=== PATIENT | male | born 1955 | race Caucasian/White ===

== ENCOUNTER 2017-04-14 14:09 | Day surgery (SDC) | payer OTHER ==
[2017-04-11 17:50] VITALS: BMI 20.3
--- NOTE | 2017-04-14 15:03 | HP ---
History & Physical Update - History History: No Change - Physical Physical: No Change - Assessment Assessment: No Change - Plan Plan: No Change
[2017-04-14] MEDS ORDERED: ACETAMINOPHEN 1000 MG/100 ML VIAL (NON FORMULARY) IVPB ONE (15:04)
[2017-04-14] MEDS ORDERED: IBUPROFEN 800 MG/8 ML IJ IVPB PRN (15:04)
[2017-04-14] MEDS ORDERED: oxyCODONE HCL 5 MG TABLET PO PRN ×2 (15:12→16:20)
[2017-04-14] MEDS ORDERED: ONDANSETRON 4 MG/2 ML VIAL IVPUSH PRN ×2 (15:12→16:20)
[2017-04-14] MEDS ORDERED: DEXTROSE 5%-0.45% SALINE 1,000 ML IV SCH (15:15)
[2017-04-14] MEDS ORDERED: LIDOCAINE HCL 1%, 10 MG/ML (20ML VIAL) ONE (15:22)
[2017-04-14] MEDS ORDERED: DESFLURANE GAS 240 ML BOTTLE IH ONE (15:25)
[2017-04-14] MEDS ORDERED: LIDOCAINE HCL/PF 2% SDV 5ML VIAL ONE (15:29)
[2017-04-14] MEDS ORDERED: PROPOFOL 20 ML ONE ×2 (15:29→15:43)
[2017-04-14] MEDS ORDERED: ceFAZolin SODIUM 1 GM VIAL IVPB ONE (15:44)
[2017-04-14] MEDS ORDERED: SUCCINYLCHOLINE CHLORIDE 200 MG/10 ML VIAL ONE (15:46)
[2017-04-14] MEDS ORDERED: MIDAZOLAM HCL 2 MG/2 ML SINGLE DOSE VIAL ONE (15:48)
[2017-04-14] MEDS ORDERED: LIDOCAINE HCL 1%, 10 MG/ML (20ML VIAL) PNB ONE (15:49)
[2017-04-14] MEDS ORDERED: BACITRACIN 15 GM TUBE TOPICAL OINTMENT ONE (15:57)
[2017-04-14] MEDS ORDERED: PROMETHAZINE HCL 25 MG/1 ML VIAL IVPUSH PRN (16:20)
[2017-04-14] MEDS ORDERED: LACTATED RINGERS SOLUTION 1,000 ML IV SCH (16:30)
[2017-04-14] MEDS ORDERED: ACETAMINOPHEN INJECTION 100 ML IVPB ONE (16:37)
[2017-04-14 16:49] VITALS: TEMP 98
[2017-04-14] MEDS ORDERED: HYDROmorphone HCL CARPU-JECT 2 MG/1 ML DISP.SYRIN ONE (17:04)
[2017-04-14] MEDS ORDERED: HYDROmorphone HCL CARPU-JECT 2 MG/1 ML DISP.SYRIN IVPUSH PRN (17:05)
[2017-04-14 17:59] VITALS: BP 133/64; PULSE 66
--- NOTE | 2017-04-15 14:46 | OP ---
DATE OF OPERATION: 04/14/2017 PREOPERATIVE DIAGNOSIS: Penile mass. POSTOPERATIVE DIAGNOSIS: Penile mass. PROCEDURE: Excision of penile mass. ANESTHESIA: General with local, Dr. Vasquez ESTIMATED BLOOD LOSS: 10 mL. SPECIMEN: Penile mass. SURGEON: Rodrigo Luis MD PREOPERATIVE INDICATIONS: The patient is a 62-year-old male with a recurrent mass in the distal shaft of his penis. It butts up to the smith of the glans. He comes for excision. Examination of his lymph nodes was negative, and CT scan of the pelvis also is negative for lymphadenopathy. DESCRIPTION OF PROCEDURE: The patient was brought to the OR, placed on the table in supine position. Given general anesthesia and IV antibiotics. The groin was prepped and draped sterilely. Lidocaine block was given. Time-out was performed. Mass was grasped with forceps and was excised en toto. It was sent for histopathologic diagnosis. It appeared to be only in the skin layer. It did not invade in the tunica layer. Hemostasis was maintained, and the skin edges were reopposed to the smith, which meets the glans with 3-0 chromic suture. The wound was then dressed. The patient was woken up. Curry [id number]
--- NOTE | 2017-04-18 15:45 | PATH ---
Surgical Pathology Report Patient Name: GUILLERMO BALBUENA [facility]. Rec. #: [id number] /Age/Gender: 1955 (Age: 62) / M Account: [id number] Location: [facility] SURGICAL Taken: 04/17/2017 Received: 04/17/2017 Reported: 04/18/2017 Physicians: Rodrigo Luis M.D. Specimen(s) Received PENILE MASS Clinical History Malignant neoplasm of penis Final Diagnosis PENILE MASS, EXCISION: MODERATELY DIFFERENTIATED INVASIVE SQUAMOUS CELL CARCINOMA, KERATINIZING TYPE (NON-HPV RELATED SQUAMOUS CELL CARCINOMA), 1.7 CM IN GREATEST DIMENSION. CARCINOMA IS LIMITED TO THE SKIN, AND IS 1.0 CM IN MAXIMUM THICKNESS. MARGINS OF EXCISION ARE FREE OF CARCINOMA AND CARCINOMA IN SITU BY LESS THAN 1 MM. NO LYMPH VASCULAR INVASION OR PERINEURAL INVASION IDENTIFIED. Comment: Also see prior specimen [id number]. Comments Surgical Pathology Cancer Case Summary Protocol posting date: June 2016 PENIS: Incisional Biopsy, Excisional Biopsy, Partial Penectomy, Total Penectomy, Circumcision Procedure _X__ Excisional biopsy Foreskin (presence and type) _X__ Cannot be determined Tumor Site _X__ Skin of the shaft Tumor Size Greatest dimension: 1.7 cm Tumor Focality _X__ Unicentric Histologic Type [id number] squamous cell carcinoma _X__ Squamous cell carcinoma, usual type Histologic Grade _X__ G2: Moderately differentiated Microscopic Tumor Extension _X__ Shaft _X__ Invasive tumor involves skin Tumor Thickness or Depth of Invasion Specify (Millimeter): 10 mm Margins _X__ Uninvolved Lymphovascular Invasion _X__ Not identified Perineural Invasion _X__ Not identified Regional Lymph Nodes _X__ No lymph nodes submitted or found Pathologic Stage Classification (pTNM, AJCC 7th Edition) TNM Descriptors (required only if applicable) (select all that apply) _X__ r (recurrent) Primary Tumor (pT) _X__ pT1a: Tumor invades subepithelial connective tissue without lymph vascular invasion and is not poorly differentiated (ie, grade 3-4) Regional Lymph Nodes (pN) _X__ pNX: Regional lymph nodes cannot be assessed Electronically Signed Dez Carter M.D. Gross Description Received in formalin labeled "penile mass," is a 2.2 x 1.8 cm brown, irregular, unoriented portion of skin excised to a depth of 0.4 cm. The epidermal surface displays a 1.8 x 1.6 x 0.7 cm joseph, raised, ulcerated nodule focally abutting the radial margin. The base is inked green and the specimen is serially sectioned. The specimen is entirely and sequentially submitted in 9 cassettes. 04/17/2017 [facility]04/17/2017
== END 2017-04-14 18:01 | disposition home or self-care (01) ==
LOC: JASU-SURG 14:09
PROVIDERS: ATTEND Urology
PROC: 0VBS0ZZ Excision of Penis, Open Approach (ICD-10-PCS; principal; 2017-04-14 15:30)
DX: C60.2 Malignant neoplasm of body of penis (principal)
CPT/HCPCS: 88307-TC; 94760

== ENCOUNTER 2018-01-15 09:52 | Inpatient (IN) | payer OTHER ==
--- NOTE | 2018-01-15 10:46 | PDOC ---
Attending Attestation - Resident Resident Name: MookAlo simeon - ED Attending Attestation I have performed the following: I have examined & evaluated the patient, The case was reviewed & discussed with the resident, I agree w/resident's findings & plan, Exceptions are as noted - HPI HPI: 01/15/18 11:35 Agree with residents HPI - Physicial Exam PE: 01/15/18 11:35 Vitals: Triage Vital signs reviewed General Appearance: no acute distress, well nourished well developed, Head: Atraumatic, Chest Wall: Tenderness to palpation over the left lower and posterior ribs. Cardiac: Regular rate and rhythym, no murmurs, no rubs, no gallops, Lungs: Clear to auscultation bilateral, good air movement bilaterally, Abdomen: Soft, non distended, tenderness to palpation in the left upper quadrant and left flank Extremities: Full range of motion to all extremities, no cyanosis, clubbing, or edema Skin: Warm and dry, no rashes or lesions, no rash, no petechiae Psych: normal mood, normal affect - Medical Decision Making 01/15/18 11:36 63 years old status post multiple rib fractures 2 weeks ago presents to the ED with progressively worsening posterior rib and now abdominal discomfort We'll treat with pain medication perform CT chest abdomen pelvis with IV contrast to rule out intrathoracic and intra-abdominal injury Chest/Abd pelvis CT findings as dictated (Metastatic disease). Patient does not live near his primary care doctor unable to reach for follow-up Given failure to thrive decrease appetitie weight loss and increasing pain management issues we will observe overnight for oncology consultation to initiate hematology oncology planned.
--- NOTE | 2018-01-15 10:58 | PDOC ---
History of Present Illness - General Chief Complaint: Pain, Acute Stated Complaint: CRACKED RIBS 2 MONTHS AGO/SEVERE PAIN Time Seen by Provider: 01/15/18 10:36 - History of Present Illness Initial Comments: The patient is a 63M with a history of penile Ca and fall from ladder (approx 3' ) 6 weeks ago who presents with increasing left thorax/flank pain. The patient reports that his pain was initially controlled with Percocet but over the last two weeks his pain has gotten worse. He states that he is now unable to walk as far as previous but is still able to walk 1-2 blocks. The patient endorses associated 2 weeks of N/V. The patient also states that he had an episode of hematuria just prior to being interviewed. The patient reports that this is the first episode of hematuria. He denies dysuria or history of hematuria. Patient endorses 2-3 weeks of decreased appetite and unintentional weight loss Patient states that his only cancer history was penile cancer for which he had surgery for and is under the impression that that was the resolution of his cancer. The patient reports that he follows up with Dr. Perez every four months and everything has been normal since his surgery. The patient has also seen Dr. Smith in the past for Urology. 01/15/18 10:51 Past History - Past Medical History Allergies/Adverse Reactions: Allergies Allergy/AdvReac Type Severity Reaction Status Date / Time No Known Drug Allergies Allergy Verified 01/15/18 10:11 Home Medications: Ambulatory Orders Bupropion HCl [Wellbutrin Xl -] 150 mg PO DAILY 03/30/15 Clonazepam [Klonopin] 2 mg PO BID 03/30/15 Risperidone [Risperdal] 2 mg PO HS 03/30/15 Trazodone HCl 100 mg PO HS 03/30/15 Oxycodone HCl/Acetaminophen [Percocet 5-325 mg Tablet] 1 tab PO Q4H PRN #20 tablet 04/14/15 Bacitracin - [Bacitracin Topical Ointment -] 1 applic TP TID #1 tube 04/14/17 Ibuprofen 600 mg PO TID #30 tablet 04/14/17 Tramadol HCl 50 mg PO QID #20 tablet MDD 4 04/14/17 Anemia: No Asthma: No Cancer: Yes (PENILE) Cardiac Disorders: No CVA: No COPD: No CHF: No Dementia: No Diabetes: No GI Disorders: No Disorders: No HTN: No Hypercholesterolemia: No Liver Disease: No Seizures: No Thyroid Disease: No - Surgical History Abdominal Surgery: No Appendectomy: No Cardiac Surgery: No Cholecystectomy: No Lung Surgery: No Neurologic Surgery: No Orthopedic Surgery: No - Suicide/Smoking/Psychosocial Hx Smoking History: Current every day smoker Have you smoked in the past 12 months: Yes Number of Cigarettes Smoked Daily: 60 Information on smoking cessation initiated: Yes 'Breaking Loose' booklet given: 01/15/18 Hx Alcohol Use: No Drug/Substance Use Hx: No Substance Use Type: None Hx Substance Use Treatment: No Review of Systems - Review of Systems Able to Perform ROS?: Yes Comments:: GENERAL/CONSTITUTIONAL: No fever or chills. No weakness HEAD, EYES, EARS, NOSE AND THROAT: No change in vision. No ear pain or discharge. No sore throat CARDIOVASCULAR: No chest pain or shortness of breath RESPIRATORY: No cough, wheezing, or hemoptysis GASTROINTESTINAL: +N /V; denies D/C, denies blood in stool GENITOURINARY: +Hematuria; No dysuria, frequency MUSCULOSKELETAL: No joint or muscle swelling or pain. No neck or back pain SKIN: No rash NEUROLOGIC: No headache, loss of consciousness, or change in strength/sensation ENDOCRINE: No increased thirst. No abnormal weight change HEMATOLOGIC/LYMPHATIC: No anemia, easy bleeding, or history of blood clots ALLERGIC/IMMUNOLOGIC: No hives or skin allergy 01/15/18 10:56 Is the patient limited Moldovan proficient: No *Physical Exam - Vital Signs Last Vital Signs Temp Pulse Resp BP Pulse Ox 98.7 F 85 22 130/80 98 01/15/18 10:11 01/15/18 10:11 01/15/18 10:11 01/15/18 10:11 01/15/18 10:11 - Physical Exam Comments: GENERAL: Awake, alert, and fully oriented, in no acute distress HEAD: No signs of trauma, normocephalic, atraumatic EYES: PERRL, EOMI, sclera anicteric, conjunctiva clear ENT: Hearing grossly normal, nares patent, oropharynx clear without exudates. Moist mucosa NECK: Normal ROM, supple, no lymphadenopathy, JVD, or masses CHEST: L lower thorax swelling over lateral approximate 10th rib LUNGS: No distress, speaks full sentences, clear to auscultation bilaterally HEART:Regular rate and rhythm, normal S1 and S2, no murmurs appreciated, peripheral pulses normal and equal bilaterally ABDOMEN: Soft, left flank and suprapubic TTP, normoactive bowel sounds. No guarding, no rebound. No masses EXTREMITIES : Normal inspection, Normal range of motion, no edema. No clubbing or cyanosis NEUROLOGICAL: Cranial nerves II through XII grossly intact. Normal speech, normal gait, no focal sensorimotor deficits SKIN: Warm, Dry, normal turgor, no rashes or lesions noted 01/15/18 10:58 ED Treatment Course - LABORATORY CBC & Chemistry Diagram: 01/19/18 06:30 01/19/18 06:30 - RADIOLOGY Radiology Studies Ordered: Category Date Time Status ABDOMEN & PELVIS CT WITH CONTR [CT] Stat CT Scan 01/15/18 10:[address] WITH CONTRAST [CT] Stat CT Scan 01/15/18 10:48 Ordered Medical Decision Making - Medical Decision Making The patient is a 63M with a history of rib fx 6 weeks ago who presents 2 weeks of increasing left sided pain associated with N/V and hematuria x1 01/15/18 10:59 ED Course CMP, CBC CT C/A/P w/ IV contrast Leukocytosis to 16 01/15/18 12:16 CT significant for lesions concerning for metastatic cancer Will contact patient's primary care doctor for further information (Dr. Ruben Perez [phone]) 01/15/18 14:38 Per patient's PCP, the patient does not live in that area. The most recent evaluation of the patient by the PCP was several months ago and at that time there was no evidence/knowledge of malignancy previously Discussed results with the patient 01/15/18 14:55 Plan for admission with oncology consult Plan discussed with the patient who is in agreement and verbalized understanding 01/15/18 15:40 Discussed results with patient's sister who is now at beside with patient who also verbalized understanding All questions answered to the best of my ability Dispo: Admit *DC/Admit/Observation/Transfer Diagnosis at time of Disposition: Pain, Malignancy Failure to thrive Qualifiers: Failure to thrive age range: in adult Qualified Code(s): R62.7 - Adult failure to thrive - Discharge Dispostion Disposition: HOME Condition at time of disposition: Guarded Decision to Admit order: No - Referrals - Patient Instructions - Post Discharge Activity
[2018-01-15] MEDS ORDERED: ACETAMINOPHEN 1000 MG/100 ML VIAL (NON FORMULARY) IVPB ONE ×2 (11:05→17:00)
[2018-01-15 11:10] LABS: HEMATOCRIT 40.5 % (35.4-49); HEMOGLOBIN 13.4 GM/dL (11.7-16.9); MCH 30.1 pg (25.7-33.7); MCHC 33.2 g/dl (32.0-35.9); MEAN CELL VOLUME 90.8 fl (80-96); MEAN PLT VOLUME 7.3 fl (7.5-11.1); PLATELET COUNT 480 K/MM3 (134-434); RBC 4.46 M/mm3 (4.00-5.60); RDW 12.5 % (11.9-15.9); WHITE BLOOD COUNT 16.9 K/mm3 (4.0-10.0)
[2018-01-15] MEDS ORDERED: ACETAMINOPHEN INJECTION 100 ML IVPB ONE ×2 (11:18→17:02)
[2018-01-15 11:38] LABS: ANION GAP 9 MMOL/L (8-16); BLOOD UREA NITROGEN 11 mg/dL (7-18); CALCIUM 9.8 mg/dL (8.5-10.1); CHLORIDE 103 mmol/L (98-107); CO2 29 mmol/L (21-32); GLUCOSE,RANDOM 113 mg/dL (74-106); POTASSIUM 4.9 mmol/L (3.5-5.1); SODIUM 141 mmol/L (136-145)
[2018-01-15 11:41] LABS: ALK PHOS 71 U/L (45-117); BILIRUBIN,TOTAL 0.4 mg/dL (0.2-1.0); CREATININE 0.8 mg/dL (0.55-1.3); SGOT/AST 7 U/L (15-37); SGPT/ALT 17 U/L (13-61); TOT PROT 7.7 g/dl (6.4-8.2)
[2018-01-15 12:32] LABS: URINE APPEARANCE TURBID; URINE BILIRUBIN NEGATIVE (<2.0 mg/dL); URINE COLOR RED; URINE GLUCOSE (UA) 1+ (NEGATIVE); URINE KETONE TRACE (NEGATIVE); URINE LEUK ESTERASE NEGATIVE (NEGATIVE); URINE NITRITE NEGATIVE (NEGATIVE); URINE UROBILINOGEN NEGATIVE mg/dL (0.2-1.0)
[2018-01-15 12:33] LABS: URINE PROTEIN 2+ (NEGATIVE)
[2018-01-15] MEDS ORDERED: morphine CARPU-JECT 4 MG/1 ML DISP.SYRIN IVPUSH ONE (15:02)
[2018-01-15] MEDS ORDERED: morphine SULFATE 4 MG/ML VIAL ONE (15:12)
--- NOTE | 2018-01-15 17:14 | HP ---
Admitting History and Physical - Primary Care Physician PCP: Carlos Hernandez - Admission History of Present Illness: - 63M with a history of penile Ca and fall from ladder (approx 3') 6 weeks ago who presents with increasing left thorax/flank pain. The patient reports that his pain was initially controlled with Percocet but over the last two weeks his pain has gotten worse. He states that he is now unable to walk as far as previous but is still able to walk 1-2 blocks. The patient endorses associated 2 weeks of N/V. The patient also states that he had an episode of hematuria just prior to being interviewed. The patient reports that this is the first episode of hematuria. He denies dysuria or history of hematuria. Patient endorses 2-3 weeks of decreased appetite and unintentional weight loss Patient states that his only cancer history was penile cancer for which he had surgery for and is under the impression that that was the resolution of his cancer. The patient reports that he follows up with Dr. Perez every four months and everything has been normal since his surgery. The patient has also seen Dr. Smith in the past for Urology. 01/15/18 10:51 - Smoking History Smoking history: Current every day smoker Have you smoked in the past 12 months: Yes Aproximately how many cigarettes per day: 60 - Alcohol/Substance Use Hx Alcohol Use: No Home Medications - Allergies Allergies/Adverse Reactions: Allergies Allergy/AdvReac Type Severity Reaction Status Date / Time No Known Drug Allergies Allergy Verified 01/15/18 10:11 - Home Medications Home Medications: Ambulatory Orders Bupropion HCl [Wellbutrin Xl -] 150 mg PO DAILY 03/30/15 Clonazepam [Klonopin] 2 mg PO BID 03/30/15 Risperidone [Risperdal] 2 mg PO HS 03/30/15 Trazodone HCl 100 mg PO HS 03/30/15 Oxycodone HCl/Acetaminophen [Percocet 5-325 mg Tablet] 1 tab PO Q4H PRN #20 tablet 04/14/15 Bacitracin - [Bacitracin Topical Ointment -] 1 applic TP TID #1 tube 04/14/17 Ibuprofen 600 mg PO TID #30 tablet 04/14/17 Tramadol HCl 50 mg PO QID #20 tablet MDD 4 04/14/17 Physical Examination Vital Signs: Vital Signs Temperature 100.9 F H 09/17/18 16:59 Pulse Rate 71 01/15/18 16:59 Respiratory Rate 16 01/15/18 16:59 Blood Pressure 140/46 01/15/18 16:59 O2 Sat by Pulse Oximetry (%) 98 01/15/18 16:59 Constitutional: Yes: Cachectic HENT: Yes: Atraumatic Neck: Yes: Supple Cardiovascular: Yes: Regular Rate and Rhythm Respiratory: Yes: CTA Bilaterally, Rhonchi Gastrointestinal: Yes: Normal Bowel Sounds Extremities: Yes: WNL Neurological: Yes: Alert, Oriented Labs: CBC, BMP 01/15/18 11:00 01/15/18 11:00 Problem List - Problems (1) Failure to thrive Code(s): OQU4324 - Qualifiers: Failure to thrive age range: in adult Qualified Code(s): R62.7 - Adult failure to thrive (2) Malignancy Code(s): C80.1 - MALIGNANT (PRIMARY) NEOPLASM, UNSPECIFIED (3) Pain Code(s): R52 - PAIN, UNSPECIFIED (4) Lung mass Assessment/Plan: reports reviewed pulmonary on board oncology consult Code(s): R91.8 - OTHER NONSPECIFIC ABNORMAL FINDING OF LUNG FIELD (5) Renal mass, right Code(s): N28.89 - OTHER SPECIFIED DISORDERS OF KIDNEY AND URETER Assessment/Plan Laboratory Tests 01/15/18 01/15/18 01/15/18 11:00 11:00 12:15 WBC 16.9 H RBC 4.46 Hgb 13.4 Hct 40.5 MCV 90.8 MCH 30.1 MCHC 33.2 RDW 12.5 Plt Count 480 H MPV 7.3 L Sodium 141 Potassium 4.9 Chloride 103 Carbon Dioxide 29 Anion Gap 9 BUN 11 Creatinine 0.8 Creat Clearance w eGFR > 60 Random Glucose 113 H Calcium 9.8 Total Bilirubin 0.4 AST 7 L ALT 17 Alkaline Phosphatase 71 Total Protein 7.7 Albumin 3.0 L Urine Color Red Urine Appearance Turbid Urine pH 6.0 Ur Specific [place] 1.025 Urine Protein 2+ H Urine Glucose (UA) 1+ H Urine Ketones Trace H Urine Blood 2+ H Urine Nitrite Negative Urine Bilirubin Negative Urine Urobilinogen Negative Ur Leukocyte Esterase Negative Urine WBC (Auto) No Result Required. Urine RBC (Auto) >100 Active Medications Generic Name Dose Route Start Last Admin Trade Name Freq PRN Reason Stop Dose Admin Acetaminophen 650 mg 01/16/18 01:41 01/16/18 02:22 Tylenol - PO 650 mg Q6H PRN Administration FEVER >101*F Fentanyl 1 patch 01/15/18 17:30 01/15/18 17:42 Duragesic 25mcg Patch - TD 01/22/18 17:27 1 patch Q72H COLLETTE Administration Sodium Chloride 1,000 mls @ 75 mls/hr 01/16/18 20:00 Normal Saline - IV ASDIR [facility] Influenza Virus Vaccine Quadrival 60 mcg 01/16/18 01:15 Flulaval Quad [id number] IM ONCE COLLETTE Miscellaneous 1 each 01/18/18 17:27 Duragesic Patch Waste TD PRN PRN PAIN Oxycodone HCl 10 mg 01/15/18 17:26 01/15/18 21:26 Roxicodone - PO 10 mg Q6H PRN Administration PAIN LEVEL 4 - 6 Pneumococcal 13-Valent Conj Vacc 0.5 ml 01/16/18 01:15 Prevnar 13 Syringe - IM 01/16/18 01:16 .ONCE ONE
[2018-01-15] MEDS ORDERED: fentaNYL 25mcg/hr PATCH.TD72 TD SCH (17:30)
[2018-01-15] MEDS ORDERED: fentaNYL 25mcg/hr PATCH.TD72 ONE (17:42)
[2018-01-15] MEDS ORDERED: FLU VACCINE QUAD 60 MCG/0.5 ML (MDV 18-19) IM SCH (18:41)
[2018-01-15 19:28] VITALS: BMI 16.9
[2018-01-15] MEDS ORDERED: PNEUMOC 13-VAL CONJ-DIP CRM/PF 0.5 ML DISP.SYRIN IM ONE (19:33)
[2018-01-15] MEDS ORDERED: PT OWN MED DRAWER 7, Y5N ONE ×3 (21:20→23:56)
[2018-01-15] MEDS ORDERED: traZODone HCL 50 MG TABLET (FP) ONE (21:20)
[2018-01-15] MEDS: oxyCODONE HCL 5 MG TABLET PO PRN (21:26)
[2018-01-15] MEDS: HEPARIN NA (PORCINE) 5,000 UNITS/ML 1ML VIAL SQ SCH (21:30)
[2018-01-15] MEDS: clonazePAM 2 MG TABLET PO SCH (21:31)
[2018-01-15] MEDS ORDERED: traZODone HCL 100 MG TABLET (FP) PO SCH (22:00)
[2018-01-15] MEDS ORDERED: risperiDONE 2 MG TABLET PO SCH (22:00)
--- NOTE | 2018-01-15 23:02 | CONSULT ---
Consult - text type - Consultation Consultation Note: Patient is a 63M with a history of penile Ca and fall from ladder 6 weeks ago who presents with increasing left thorax/flank pain. The patient reports that his pain was initially controlled with Percocet but over the last two weeks his pain has gotten worse. He states that he is now unable to walk as far as previous but is still able to walk 1-2 blocks. The patient endorses associated 2 weeks of N/V. The patient also states that he had an episode of hematuria,painless. Patient endorses 2-3 weeks of decreased appetite and unintentional weight loss of 20lbs Patient states that he has h/o penile cancer for which he had surgery - Past Medical History Allergies/Adverse Reactions: Allergies Allergy/AdvReac Type Severity Reaction Status Date / Time No Known Drug Allergies Allergy Verified 01/15/18 10:11 Home Medications: Ambulatory Orders Bupropion HCl [Wellbutrin Xl -] 150 mg PO DAILY 03/30/15 Clonazepam [Klonopin] 2 mg PO BID 03/30/15 Risperidone [Risperdal] 2 mg PO HS 03/30/15 Trazodone HCl 100 mg PO HS 03/30/15 Oxycodone HCl/Acetaminophen [Percocet 5-325 mg Tablet -] 1 tab PO Q4H PRN #20 tablet 04/14/15 Bacitracin - [Bacitracin Topical Ointment -] 1 applic TP TID #1 tube 04/14/17 Ibuprofen 600 mg PO TID #30 tablet 04/14/17 Tramadol HCl 50 mg PO QID #20 tablet MDD 4 04/14/17 PMH Cancer: Yes (PENILE) - Suicide/Smoking/Psychosocial Hx Smoking History: Current every day smoker - Vital Signs Last Vital Signs Temp Pulse Resp BP Pulse Ox 98.7 F 85 22 130/80 98 01/15/18 10:11 01/15/18 10:11 01/15/18 10:11 01/15/18 10:11 01/15/18 10:11 Cor: RSR, No murmurs, No gallops Lungs: Clear to P&A Abd: Soft, Normal bowel sounds, No organomegaly Ext:No significant edema Abnormal Lab Results 01/15/18 01/15/18 01/15/18 11:00 11:00 12:15 WBC 16.9 H Plt Count 480 H MPV 7.3 L Random Glucose 113 H AST 7 L Albumin 3.0 L Urine Protein 2+ H Urine Glucose (UA) 1+ H Urine Ketones Trace H Urine Blood 2+ H Active Medications Generic Name Dose Route Start Last Admin Trade Name Freq PRN Reason Stop Dose Admin Bupropion HCl 150 mg 01/16/18 10:00 Wellbutrin Xl - PO DAILY COLLETTE Clonazepam 2 mg 01/15/18 22:00 01/15/18 21:31 Klonopin - PO 2 mg BID COLLETTE Administration Fentanyl 1 patch 01/15/18 17:30 01/15/18 17:42 Duragesic 25mcg Patch - TD 01/22/18 17:27 1 patch Q72H COLLETTE Administration Heparin Sodium (Porcine) 5,000 unit 01/15/18 22:00 01/15/18 21:30 Heparin - SQ 5,000 unit BID COLLETTE Administration Influenza Virus Vaccine Quadrival 60 mcg 01/16/18 01:15 Flulaval Quad [id number] IM ONCE COLLETTE Miscellaneous 1 each 01/18/18 17:27 Duragesic Patch Waste TD PRN PRN PAIN Oxycodone HCl 10 mg 01/15/18 17:26 01/15/18 21:26 Roxicodone - PO 10 mg Q6H PRN Administration PAIN LEVEL 4 - 6 Pneumococcal 13-Valent Conj Vacc 0.5 ml 01/16/18 01:15 Prevnar 13 Syringe - IM 01/16/18 01:16 .ONCE ONE Risperidone 2 mg 01/15/18 22:00 01/15/18 22:08 Risperdal - PO 2 mg HS COLLETTE Administration Trazodone HCl 100 mg 01/15/18 22:00 01/15/18 21:31 Desyrel - PO 100 mg HS COLLETTE Administration CT significant for lesions concerning for metastatic cancer Will contact patient's primary care doctor for further information (Dr. Ruben Perez [phone]) 01/15/18 14:38 A/P 63 years old status post multiple rib fractures 2 weeks ago presents to the ED with progressively worsening posterior rib and now abdominal discomfort. also with significant wt. 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 HPV-/squamous cell cancer CT c/a/p --rt. renal pole mass. LLL mass extending to mediatinum and destructive lesion Lt. 7th rib will need tissue diagnosis . Was on NSAIDS upuntin 01/14 check coags will discuss with IR will follow
[2018-01-16] MEDS: ACETAMINOPHEN 325 MG TABLET (FP) PO PRN (02:22)
[2018-01-16 06:39] LABS: BASO % 0.7 % (0-2.0); EOS % 0.9 % (0-4.5); HEMOGLOBIN 12.6 GM/dL (11.7-16.9); LYMPH % 8.2 % (8-40); MCH 29.5 pg (25.7-33.7); MCHC 33.1 g/dl (32.0-35.9); MEAN CELL VOLUME 89.1 fl (80-96); MEAN PLT VOLUME 7.7 fl (7.5-11.1); MONO % 11.3 % (3.8-10.2); NEUT % 78.9 % (42.8-82.8); PLATELET COUNT 446 K/MM3 (134-434); RBC 4.27 M/mm3 (4.00-5.60); RDW 12.4 % (11.9-15.9); WHITE BLOOD COUNT 20.5 K/mm3 (4.0-10.0)
[2018-01-16 06:52] LABS: INR 1.28 (0.83-1.09); PROTHROMBIN TIME (PATIENT) 14.5 SEC (9.7-13.0)
[2018-01-16 06:55] LABS: ACTIVATED PTT 34.1 SECONDS (25.2-36.5)
[2018-01-16 07:17] LABS: CHLORIDE 101 mmol/L (98-107); POTASSIUM 4.5 mmol/L (3.5-5.1); SODIUM 135 mmol/L (136-145)
[2018-01-16 07:30] LABS: ALBUMIN 2.7 g/dl (3.4-5.0); ALK PHOS 69 U/L (45-117); ANION GAP 7 MMOL/L (8-16); BILIRUBIN,TOTAL 0.5 mg/dL (0.2-1); BLOOD UREA NITROGEN 19 mg/dL (7-18); CALCIUM 9.8 mg/dL (8.5-10.1); CO2 27 mmol/L (21-32); CREATININE 1.5 mg/dL (0.55-1.3); GLUCOSE,RANDOM 103 mg/dL (74-106); SGOT/AST 15 U/L (15-37); SGPT/ALT 15 U/L (13-61)
[2018-01-16] MEDS: HEPARIN NA (PORCINE) 5,000 UNITS/ML 1ML VIAL SQ SCH (10:06)
[2018-01-16] MEDS: clonazePAM 2 MG TABLET PO SCH (10:06)
[2018-01-16 10:53] LABS: ACANTHOCYTES 0; ANISOCYTOSIS 0; HELMET CELLS 0; HOWELL-JOLLY BODIES 0; MACROCYTOSIS 0; OVALOCYTE 0; PLATELET ESTIMATE NORMAL; ROULEAU 0; SICKELED CELLS 0; TARGET CELLS 0; TEAR DROP CELLS 0; TOXIC GRANULATION 0
--- NOTE | 2018-01-16 12:59 | PN ---
Progress Note (short form) - Note Progress Note: Patient seen and examined Lethargic and barely communicative . On pain meds and sedative meds Unable to obtain adequate ROS Nurses describe episode of gross hematuria Last Vital Signs Temp Pulse Resp BP Pulse Ox 98.4 F 78 18 102/55 97 01/16/18 09:04 01/16/18 09:04 01/16/18 09:04 01/16/18 09:04 01/16/18 09:00 HEENT: MAL[place], EOM Intact Oropharynx: No thrush, No mucositis, dentures Cor: RSR, No murmurs, No gallops Lungs: diminished breath sounds bilaterally Abd: Soft, Normal bowel sounds, No organomegaly Ext:No significant edema Skin: No rashes, Integument intact, penis- no lesions No inguinal adenopathy CT - lungs- with ALONDRA mass with cavitation extending into mediastinum CT abdomen- right renal mass CBC, BMP 01/16/18 06:00 01/16/18 06:00 Current Medications Generic Name Dose Route Start Last Admin Trade Name Freq PRN Reason Stop Dose Admin Acetaminophen 650 mg 01/16/18 01:41 01/16/18 02:22 Tylenol - PO 650 mg Q6H PRN Administration FEVER >101*F Bupropion HCl 150 mg 01/16/18 10:00 01/16/18 10:06 Wellbutrin Xl - PO 150 mg DAILY COLLETTE Administration Clonazepam 2 mg 01/15/18 22:00 01/16/18 10:06 Klonopin - PO 2 mg BID COLLETTE Administration Fentanyl 1 patch 01/15/18 17:30 01/15/18 17:42 Duragesic 25mcg Patch - TD 01/22/18 17:27 1 patch Q72H COLLETTE Administration Heparin Sodium (Porcine) 5,000 unit 01/15/18 22:00 01/16/18 10:06 Heparin - SQ 5,000 unit BID COLLETTE Administration Influenza Virus Vaccine Quadrival 60 mcg 01/16/18 01:15 Flulaval Quad [id number] IM ONCE [facility] Miscellaneous 1 each 01/18/18 17:27 Duragesic Patch Waste TD PRN PRN PAIN Oxycodone HCl 10 mg 01/15/18 17:26 01/15/18 21:26 Roxicodone - PO 10 mg Q6H PRN Administration PAIN LEVEL 4 - 6 Pneumococcal 13-Valent Conj Vacc 0.5 ml 01/16/18 01:15 Prevnar 13 Syringe - IM 01/16/18 01:16 .ONCE ONE Risperidone 2 mg 01/15/18 22:00 01/15/18 22:08 Risperdal - PO 2 mg HS COLLETTE Administration Trazodone HCl 100 mg 01/15/18 22:00 01/15/18 21:31 Desyrel - PO 100 mg HS COLLETTE Administration Impression: Oversedation,lethargy Lung mass Renal mass Hematuria Leucocytosis H/O penile ca with recurrence - s/p surgery Consider psychiatry to adjust sedatives Pulmonary consult consult Leucocytosis--? reactive Have asked I.R. to review imaging -to discuss tissue With cavitary lung mass - are we dealing with ca or an infectious/inflammatory mass?? Consider I.D. With hematuria and renal mass- likely RCC
--- NOTE | 2018-01-16 14:48 | PN ---
Progress Note (short form) - Note Progress Note: PULMONARY CONSULTATION DICTATED 12/16/17 IMP ALONDRA CONSOLIDATION ? TUMOR, ? POST OBSTRUCTIVE PNEUMONIA. ? ATELECTASIS LEFT HILAR MASS LEFT RIB LESION LIKELY MALIGNANT R RENAL MASS LIKELY MALIGNANT RIB FXS S/P FALL H/O PENILE CA TOBACCO ABUSE FARRAH PLAN O2 ANALGESICS ABX CT GUIDED BX LEFT RIB LESION DVT PROPHYLAXIS INCENTIVE SPIROMETER IVF MONITOR VIBHA MONTANO Problem List - Problems (1) Lung mass Code(s): R91.8 - OTHER NONSPECIFIC ABNORMAL FINDING OF LUNG FIELD (2) Failure to thrive Code(s): [id number] - Qualifiers: Failure to thrive age range: in adult Qualified Code(s): R62.7 - Adult failure to thrive (3) Malignancy Code(s): C80.1 - MALIGNANT (PRIMARY) NEOPLASM, UNSPECIFIED (4) Pain Code(s): R52 - PAIN, UNSPECIFIED (5) Rib lesion Code(s): M89.9 - DISORDER OF BONE, UNSPECIFIED (6) Renal mass, right Code(s): N28.89 - OTHER SPECIFIED DISORDERS OF KIDNEY AND URETER (7) Tobacco abuse Code(s): Z72.0 - TOBACCO USE (8) Tobacco abuse counseling Code(s): Z71.6 - TOBACCO ABUSE COUNSELING
--- NOTE | 2018-01-16 14:55 | CON.ID ---
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 The patient reports that his pain was initially controlled with Percocet but over the last two weeks his pain has gotten worse. He states that he is now unable to walk as far as previous but is still able to walk 1-2 blocks. The patient endorses associated 2 weeks of N/V. The patient also states that he had an episode of hematuria just prior to being interviewed. The patient reports that this is the first episode of hematuria. He denies dysuria or history of hematuria. Patient endorses 2-3 weeks of decreased appetite and unintentional weight loss patient has been worked up and the plan is to get a biopsy of the lung patient is extremely cachetic and weak - History Source History Provided By: Patient, Medical Record Limitations to Obtaining History: Poor Historian - Alcohol/Substance Use Hx Alcohol Use: No - Smoking History Smoking history: Current every day smoker Have you smoked in the past 12 months: Yes Aproximately how many cigarettes per day: 60 Home Medications - Allergies Allergies/Adverse Reactions: Allergies Allergy/AdvReac Type Severity Reaction Status Date / Time No Known Drug Allergies Allergy Verified 01/15/18 10:11 - Home Medications Home Medications: Ambulatory Orders Bupropion HCl [Wellbutrin Xl -] 150 mg PO DAILY 03/30/15 Clonazepam [Klonopin] 2 mg PO BID 03/30/15 Risperidone [Risperdal] 2 mg PO HS 03/30/15 Trazodone HCl 100 mg PO HS 03/30/15 Oxycodone HCl/Acetaminophen [Percocet 5-325 mg Tablet -] 1 tab PO Q4H PRN #20 tablet 04/14/15 Bacitracin - [Bacitracin Topical Ointment -] 1 applic TP TID #1 tube 04/14/17 Ibuprofen 600 mg PO TID #30 tablet 04/14/17 Tramadol HCl 50 mg PO QID #20 tablet MDD 4 04/14/17 Physical Exam Vital Signs: Vital Signs Temperature 98.4 F 01/16/18 09:04 Pulse Rate 78 01/16/18 09:04 Respiratory Rate 18 01/16/18 09:04 Blood Pressure 102/55 01/16/18 09:04 O2 Sat by Pulse Oximetry (%) 97 01/16/18 09:00 Constitutional: Yes: Other (cachetic,failure to thrive) Eyes: Yes: Conjunctiva Clear Cardiovascular: Yes: Regular Rate and Rhythm Respiratory: Yes: Poor Air Entry, Rhonchi Gastrointestinal: Yes: Normal Bowel Sounds, Soft Musculoskeletal: Yes: Muscle Weakness Extremities: Yes: WNL Neurological: Yes: Alert, Oriented Psychiatric: Yes: Alert, Oriented Labs: CBC, BMP 01/16/18 06:00 01/16/18 06:00 Assessment/Plan Problem List - Problems (1) Lung mass Code(s): R91.8 - OTHER NONSPECIFIC ABNORMAL FINDING OF LUNG FIELD (2) Failure to thrive Code(s): [id number] - Qualifiers: Failure to thrive age range: in adult Qualified Code(s): R62.7 - Adult failure to thrive (3) Malignancy Code(s): C80.1 - MALIGNANT (PRIMARY) NEOPLASM, UNSPECIFIED (4) Pain Code(s): R52 - PAIN, UNSPECIFIED (5) Rib lesion Code(s): M89.9 - DISORDER OF BONE, UNSPECIFIED (6) Renal mass, right Code(s): N28.89 - OTHER SPECIFIED DISORDERS OF KIDNEY AND URETER (7) Tobacco abuse Code(s): Z72.0 - TOBACCO USE (8) Tobacco abuse counseling Code(s): Z71.6 - TOBACCO ABUSE COUNSELING patient had a fever could be post obstructive pna plan is for lung biopsy plan will hold off on starting abx will watch him if he respikes then will initiate abx await for biopsy close watch rest as per the team
--- NOTE | 2018-01-16 16:33 | CONS ---
PULMONARY CONSULTATION DATE OF CONSULTATION: 01/16/2018 REFERRING PHYSICIAN: Carlos Hernandez MD History is obtained from medical records since patient is currently very drowsy. The patient is a 63-year-old male with a history of penal CA status post surgery; a longstanding history of tobacco use, about 3 packs per day, currently still smoking; status post fall from a ladder 3-6 weeks ago; was sent to [facility] with increasing left-sided thoracic and flank pain. Patient apparently on admission noted that his pain was initially controlled with Percocet but over the past couple weeks, it has progressively gotten worse. He states he is unable to walk secondary to the pain. He also complains of 2-week history of nausea and vomiting. Also, patient has had an episode of hematuria. He also apparently for the past 2-3 weeks has decreased p.o. intake and unintentional weight loss. On admission, he underwent a CT scan of the chest and abdomen which revealed evidence of a large left hilar mass and possibility of atelectasis in the left upper lobe, and also there was an area of cavitation within a process. There was also noted to be a bony destructive process involving the left anterior seventh rib with a large soft tissue mass associated with this. His CAT scan of the abdomen revealed a large right hypodense, enhancing renal mass strongly suspicious for malignancy. On admission, he was placed on analgesics. the patient has a history of tobacco use, currently still smokes. No further history is available at this time. CURRENT MEDICATIONS: Include Duragesic patch, Tylenol, heparin, Wellbutrin, Desyrel, Risperdal, Klonopin, Roxicodone, , and Prevnar. REVIEW OF SYSTEMS: Positive left-sided chest pain. No nausea. No vomiting at this time. No abdominal pain. PHYSICAL EXAMINATION: General: The patient is a thin male, drowsy secondary to medication. Vital Signs: Maximum temperature is 100.4, currently 98.7. Blood pressure is 115/62. Respiratory rate is 18. O2 saturation is 97% on room air. HEENT: Normocephalic, atraumatic. Neck: Supple. Heart: Regular. S1, S2. Chest: Poor inspiratory effort. A few crackles noted on the left. Abdomen: Soft. Bowel sounds are positive. Extremities: No cyanosis or edema. LABORATORY DATA: WBC is 20.5, hemoglobin 12.6, hematocrit 38, platelet count of 446,000. INR is 1.28. BUN 19, creatinine 1.5. Chest CT as noted earlier. IMPRESSION: 1. Left hilar mass, likely malignant. 2. Left upper lobe consolidation, possibly post-obstructive pneumonia, possible atelectasis, possible tumor. 3. Left seventh rib destruction with soft tissue mass, likely malignant. 4. Right renal mass, again likely malignant. 5. Multiple rib fractures status post fall. 6. History of penal cancer. 7. Tobacco use. PLAN: Supplemental O2, analgesics. We will schedule antibiotic therapy. We will arrange for CT-guided biopsy of left rib lesion. DVT prophylaxis, incentive spirometer. AYAAN MONTANO M.D. [id number]
--- NOTE | 2018-01-16 17:57 | PN ---
Progress Note, Physician - Current Medication List Current Medications: Active Medications Acetaminophen (Tylenol -) 650 mg PO Q6H PRN PRN Reason: FEVER >101*F Last Admin: 01/16/18 02:22 Dose: 650 mg Bupropion HCl (Wellbutrin Xl -) 150 mg PO DAILY [facility] Last Admin: 01/16/18 10:06 Dose: 150 mg Clonazepam (Klonopin -) 2 mg PO BID [facility] Last Admin: 01/16/18 10:06 Dose: 2 mg Fentanyl (Duragesic 25mcg Patch -) 1 patch TD Q72H [facility] Stop: 01/22/18 17:27 Last Admin: 01/15/18 17:42 Dose: 1 patch Influenza Virus Vaccine Quadrival (Flulaval Quad [id number]) 60 mcg IM ONCE [facility] Miscellaneous (Duragesic Patch Waste) 1 each TD PRN PRN PRN Reason: PAIN Oxycodone HCl (Roxicodone -) 10 mg PO Q6H PRN PRN Reason: PAIN LEVEL 4 - 6 Last Admin: 01/15/18 21:26 Dose: 10 mg Pneumococcal 13-Valent Conj Vacc (Prevnar 13 Syringe -) 0.5 ml IM .ONCE ONE Stop: 01/16/18 01:16 Risperidone (Risperdal -) 2 mg PO [facility] Last Admin: 01/15/18 22:08 Dose: 2 mg Trazodone HCl (Desyrel -) 100 mg PO [facility] Last Admin: 01/15/18 21:31 Dose: 100 mg - Objective Vital Signs: Vital Signs Temperature 98.7 F 01/16/18 14:57 Pulse Rate 87 01/16/18 14:57 Respiratory Rate 18 01/16/18 14:57 Blood Pressure 115/62 01/16/18 14:57 O2 Sat by Pulse Oximetry (%) 97 01/16/18 09:00 Constitutional: Yes: No Distress HENT: Yes: Atraumatic Neck: Yes: Supple Cardiovascular: Yes: Regular Rate and Rhythm Respiratory: Yes: CTA Bilaterally Gastrointestinal: Yes: Normal Bowel Sounds Extremities: Yes: WNL Edema: No Peripheral Pulses WNL: Yes Neurological: Yes: Alert, Oriented Labs: CBC, BMP 01/16/18 06:00 01/16/18 06:00 INR, PTT INR 1.28 (0.83-1.09) H 01/16/18 06:00 Problem List - Problems (1) Failure to thrive Code(s): [id number] - Qualifiers: Failure to thrive age range: in adult Qualified Code(s): R62.7 - Adult failure to thrive (2) Malignancy Code(s): C80.1 - MALIGNANT (PRIMARY) NEOPLASM, UNSPECIFIED (3) Pain Code(s): R52 - PAIN, UNSPECIFIED (4) Lung mass Assessment/Plan: for biopsy tomorrow Code(s): R91.8 - OTHER NONSPECIFIC ABNORMAL FINDING OF LUNG FIELD (5) Renal mass, right Code(s): N28.89 - OTHER SPECIFIED DISORDERS OF KIDNEY AND URETER
[2018-01-16] MEDS ORDERED: SODIUM CHLORIDE 1,000 ML IV SCH (20:00)
[2018-01-17] MEDS: ACETAMINOPHEN 325 MG TABLET (FP) PO PRN (00:49)
--- NOTE | 2018-01-17 09:41 | PN ---
Progress Note, Physician History of Present Illness: post biopsy stable thin cachetic pain - Current Medication List Current Medications: Active Medications Acetaminophen (Tylenol -) 650 mg PO Q6H PRN PRN Reason: FEVER >101*F Last Admin: 01/17/18 00:49 Dose: 650 mg Fentanyl (Duragesic 25mcg Patch -) 1 patch TD Q72H [facility] Stop: 01/22/18 17:27 Last Admin: 01/15/18 17:42 Dose: 1 patch Sodium Chloride (Normal Saline -) 1,000 mls @ 75 mls/hr IV ASDIR [facility] Last Admin: 01/16/18 20:32 Dose: 75 mls/hr Influenza Virus Vaccine Quadrival (Flulaval Quad [id number]) 60 mcg IM ONCE [facility] Miscellaneous (Duragesic Patch Waste) 1 each TD PRN PRN PRN Reason: PAIN Oxycodone HCl (Roxicodone -) 10 mg PO Q6H PRN PRN Reason: PAIN LEVEL 4 - 6 Last Admin: 01/15/18 21:26 Dose: 10 mg Pneumococcal 13-Valent Conj Vacc (Prevnar 13 Syringe -) 0.5 ml IM .ONCE ONE Stop: 01/16/18 01:16 - Objective Vital Signs: Vital Signs Temperature 98.6 F 01/17/18 09:24 Pulse Rate 84 01/17/18 09:24 Respiratory Rate 17 01/17/18 09:24 Blood Pressure 127/74 01/17/18 09:24 O2 Sat by Pulse Oximetry (%) 99 01/16/18 21:00 Constitutional: Yes: Calm, Mild Distress, Other (failure to thrive) Cardiovascular: Yes: Regular Rate and Rhythm Respiratory: Yes: Poor Air Entry, Rhonchi Gastrointestinal: Yes: Normal Bowel Sounds, Soft Musculoskeletal: Yes: WNL Extremities: Yes: WNL Neurological: Yes: Alert, Oriented Psychiatric: Yes: Alert, Oriented Labs: CBC, BMP 01/16/18 06:00 01/16/18 06:00 INR, PTT INR 1.28 (0.83-1.09) H 01/16/18 06:00 Assessment/Plan Problem List - Problems (1) Lung mass Code(s): R91.8 - OTHER NONSPECIFIC ABNORMAL FINDING OF LUNG FIELD (2) Failure to thrive Code(s): [id number] - Qualifiers: Failure to thrive age range: in adult Qualified Code(s): R62.7 - Adult failure to thrive (3) Malignancy Code(s): C80.1 - MALIGNANT (PRIMARY) NEOPLASM, UNSPECIFIED (4) Pain Code(s): R52 - PAIN, UNSPECIFIED (5) Rib lesion Code(s): M89.9 - DISORDER OF BONE, UNSPECIFIED (6) Renal mass, right Code(s): N28.89 - OTHER SPECIFIED DISORDERS OF KIDNEY AND URETER (7) Tobacco abuse Code(s): Z72.0 - TOBACCO USE (8) Tobacco abuse counseling Code(s): Z71.6 - TOBACCO ABUSE COUNSELING patient had a fever could be post obstructive pna plan is for lung biopsy plan will hold off on starting abx will watch him if he respikes then will initiate abx await for biopsy results close watch rest as per the team
--- NOTE | 2018-01-17 10:22 | PN ---
Progress Note (short form) - Note Progress Note: Cachetic and weak appearing. Afebrile this AM. Intake & Output 01/14/18 01/15/18 01/16/18 01/17/18 23:59 23:59 23:59 23:59 Intake Total 120 1295 75 Balance 120 1295 75 Weight 108 lb 7 oz 108 lb Last Vital Signs Temp Pulse Resp BP Pulse Ox 98.6 F 85 17 110/58 100 01/17/18 09:24 01/17/18 10:16 01/17/18 10:16 01/17/18 10:16 01/17/18 10:16 Active Medications Acetaminophen (Tylenol -) 650 mg PO Q6H PRN PRN Reason: FEVER >101*F Last Admin: 01/17/18 00:49 Dose: 650 mg Fentanyl (Duragesic 25mcg Patch -) 1 patch TD Q72H [facility] Stop: 01/22/18 17:27 Last Admin: 01/15/18 17:42 Dose: 1 patch Sodium Chloride (Normal Saline -) 1,000 mls @ 75 mls/hr IV ASDIR [facility] Last Admin: 01/16/18 20:32 Dose: 75 mls/hr Influenza Virus Vaccine Quadrival (Flulaval Quad [id number]) 60 mcg IM ONCE [facility] Miscellaneous (Duragesic Patch Waste) 1 each TD PRN PRN PRN Reason: PAIN Oxycodone HCl (Roxicodone -) 10 mg PO Q6H PRN PRN Reason: PAIN LEVEL 4 - 6 Last Admin: 01/15/18 21:26 Dose: 10 mg Pneumococcal 13-Valent Conj Vacc (Prevnar 13 Syringe -) 0.5 ml IM .ONCE ONE Stop: 01/16/18 01:16 Constitutional: Yes: Cachectic HENT: Yes: Atraumatic Neck: Yes: Supple Cardiovascular: Yes: Regular Rate and Rhythm Respiratory: Yes: Bilateral scattered Rhonchi Gastrointestinal: Yes: Normal Bowel Sounds Extremities: Yes: WNL Neurological: Yes: Alert, Oriented Labs: Laboratory Results - last 24 hr 01/16/18 06:00 Neutrophils % (Manual) 82.3 Band Neutrophils % 0.0 Lymphocytes % (Manual) 6.3 L Monocytes % (Manual) 9 Eosinophils % (Manual) 1.0 Basophils % (Manual) 0.0 Myelocytes % (Man) 0 Promyelocytes % (Man) 0 Blast Cells % (Manual) 0 Metamyelocytes 0 Hypochromia 0 Toxic Granulation 0 Dohle Bodies 0 Platelet Estimate Normal Polychromasia 0 Poikilocytosis 0 Basophilic Stippling 0 Anisocytosis 0 Microcytosis 0 Macrocytosis 0 Spherocytes 0 Sickle Cells 0 Target Cells 0 Tear Drop Cells 0 Ovalocytes 0 Stomatocytes 0 Helmet Cells 0 Draper[place] Bodies 0 Cherry Rings 0 [place] Cells 0 Acanthocytes (Spur) 0 Rouleaux 0 Fragmented RBCs 0 Schistocytes 0 Problem List - Problems (1) Lung mass Code(s): R91.8 - OTHER NONSPECIFIC ABNORMAL FINDING OF LUNG FIELD (2) Failure to thrive Code(s): [id number] - Qualifiers: Failure to thrive age range: in adult Qualified Code(s): R62.7 - Adult failure to thrive (3) Malignancy Code(s): C80.1 - MALIGNANT (PRIMARY) NEOPLASM, UNSPECIFIED (4) Pain Code(s): R52 - PAIN, UNSPECIFIED (5) Rib lesion Code(s): M89.9 - DISORDER OF BONE, UNSPECIFIED (6) Renal mass, right Code(s): N28.89 - OTHER SPECIFIED DISORDERS OF KIDNEY AND URETER (7) Tobacco abuse Code(s): Z72.0 - TOBACCO USE (8) Tobacco abuse counseling Code(s): Z71.6 - TOBACCO ABUSE COUNSELING IMP ALONDRA CONSOLIDATION ? TUMOR, ? POST OBSTRUCTIVE PNEUMONIA. ? ATELECTASIS LEFT HILAR MASS LEFT RIB LESION LIKELY MALIGNANT R RENAL MASS LIKELY MALIGNANT RIB FXS S/P FALL H/O PENILE CA TOBACCO ABUSE FARRAH PLAN O2 ANALGESICS ABX PER ID CT GUIDED BX LEFT RIB LESION DVT PROPHYLAXIS INCENTIVE SPIROMETER IVF MONITOR VIBHA ASHLEY
--- NOTE | 2018-01-17 12:35 | CONSULT ---
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 Pt did not have any chemo or radiation therapy for his prior Ca. Pt reports that he was using NSAIDs at home for his pain. Had poor oral intake for several weeks. No N/V/D, Abd pain. No skin rash, no recent Abx use. Did have contrast CT on admission. PMhx: as above Allergies: NKDA Family Hx: NC Social Hx: No T/A/D ROS: as per HPI, all other pertinent ros negative Home Medications Medication Instructions Recorded Bupropion HCl [Wellbutrin Xl -] 150 mg PO DAILY 03/30/15 Clonazepam [Klonopin] 2 mg PO BID 03/30/15 Risperidone [Risperdal] 2 mg PO HS 03/30/15 Trazodone HCl 100 mg PO HS 03/30/15 Oxycodone HCl/Acetaminophen 1 tab PO Q4H PRN #20 tablet 04/14/15 [Percocet 5-325 mg Tablet -] Bacitracin - [Bacitracin Topical 1 applic TP TID #1 tube 04/14/17 Ointment -] Ibuprofen 600 mg PO TID #30 tablet 04/14/17 Tramadol HCl 50 mg PO QID #20 tablet MDD 4 04/14/17 Vital Signs Temperature 98.6 F 01/17/18 09:24 Pulse Rate 90 01/17/18 10:51 Respiratory Rate 15 01/17/18 10:51 Blood Pressure 113/68 01/17/18 10:51 O2 Sat by Pulse Oximetry (%) 100 01/17/18 10:51 Intake & Output 01/14/18 01/15/18 01/16/18 01/17/18 23:59 23:59 23:59 23:59 Intake Total 120 1295 75 Balance 120 1295 75 Weight 49.186 kg 48.988 kg NAD, cachetic Neck supple, no JVD Dry MM RRR, No M/R slight rales left lung base soft NT/ND, no rebound or guarding no bladder distension no LE edema, clubbing or cyanosis CBC, BMP 01/16/18 06:00 09/18/18 06:00 Current Medications Acetaminophen (Tylenol -) 650 mg PO Q6H PRN PRN Reason: FEVER >101*F Last Admin: 01/17/18 00:49 Dose: 650 mg Fentanyl (Duragesic 25mcg Patch -) 1 patch TD Q72H [facility] Stop: 01/22/18 17:27 Last Admin: 01/15/18 17:42 Dose: 1 patch Sodium Chloride (Normal Saline -) 1,000 mls @ 75 mls/hr IV ASDIR [facility] Last Admin: 01/16/18 20:32 Dose: 75 mls/hr Influenza Virus Vaccine Quadrival (Flulaval Quad [id number]) 60 mcg IM ONCE [facility] Miscellaneous (Duragesic Patch Waste) 1 each TD PRN PRN PRN Reason: PAIN Oxycodone HCl (Roxicodone -) 10 mg PO Q6H PRN PRN Reason: PAIN LEVEL 4 - 6 Last Admin: 01/15/18 21:26 Dose: 10 mg Pneumococcal 13-Valent Conj Vacc (Prevnar 13 Syringe -) 0.5 ml IM .ONCE ONE Stop: 01/16/18 01:16 63 year old gentleman with 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
[2018-01-17 13:35] LABS: ALBUMIN 2.7 g/dl (3.4-5.0); ANION GAP 5 MMOL/L (8-16); BLOOD UREA NITROGEN 25 mg/dL (7-18); CALCIUM 9.8 mg/dL (8.5-10.1); CHLORIDE 100 mmol/L (98-107); CO2 30 mmol/L (21-32); CREATININE 1.7 mg/dL (0.55-1.3); GLUCOSE,RANDOM 90 mg/dL (74-106); POTASSIUM 4.8 mmol/L (3.5-5.1); SGOT/AST 13 U/L (15-37); SGPT/ALT 14 U/L (13-61); SODIUM 135 mmol/L (136-145)
[2018-01-17 13:37] LABS: ALK PHOS 70 U/L (45-117); BILIRUBIN,TOTAL 0.3 mg/dL (0.2-1)
--- NOTE | 2018-01-17 13:59 | PN ---
Physical Exam: SUBJECTIVE: Patient seen and examined at bed side this afternoon. He just came back s/p IR guided biopsy. States he has chest pain, pressure type, 9/10 in intensity, non radiating. Denies palpitation, sob, cough, abdominal pain, nausea or vomiting. No acute overnight events. OBJECTIVE: Vital Signs Period Temp Pulse Resp BP Sys/Ventura Pulse Ox Last 24 Hr 98.3 F-101.2 F 77-104 15-19 96-127/49-74 99-100 GENERAL: Middle aged male, thinly built, sitting in bed, eating lunch, is awake , alert, and fully oriented, in no acute distress. HEAD: Normal with no signs of trauma. EYES: EOM intact, no pallor or icterus. ENT: Ears normal, moist mucous membranes. NECK: Supple. LUNGS: Decreased breath sounds. Crackles on the base of the Left > right. no wheeze HEART: Regular rate and rhythm, S1, S2 without murmur. CHEST: Scar florencia + ABDOMEN: Soft, nontender, no organomegaly GENITALIA: s/p excision of the foreskin EXTREMITIES: 2+ pulses, warm, well-perfused, no edema. NEUROLOGICAL: No facial droop. Normal speech, gait not observed. PSYCH: Normal mood, normal affect. SKIN: Warm, dry, normal turgor, no rashes or lesions noted Laboratory Results - last 24 hr 01/17/18 12:50 Sodium 135 L Potassium 4.8 Chloride 100 Carbon Dioxide 30 Anion Gap 5 L BUN 25 H Creatinine 1.7 H Creat Clearance w eGFR 41.18 Random Glucose 90 Calcium 9.8 Total Bilirubin 0.3 AST 13 L ALT 14 Alkaline Phosphatase 70 Total Protein 7.0 Albumin 2.7 L Active Medications Generic Name Dose Route Start Last Admin Trade Name Freq PRN Reason Stop Dose Admin Acetaminophen 650 mg 01/16/18 01:41 01/17/18 00:49 Tylenol - PO 650 mg Q6H PRN Administration FEVER >101*F Fentanyl 1 patch 01/15/18 17:30 01/15/18 17:42 Duragesic 25mcg Patch - TD 01/22/18 17:27 1 patch Q72H [facility] Administration Sodium Chloride 1,000 mls @ 100 mls/hr 01/17/18 12:39 Normal Saline - IV ASDIR [facility] Influenza Virus Vaccine Quadrival 60 mcg 01/16/18 01:15 Flulaval Quad [id number] IM ONCE [facility] Miscellaneous 1 each 01/18/18 17:27 Duragesic Patch Waste TD PRN PRN PAIN Oxycodone HCl 10 mg 01/15/18 17:26 01/15/18 21:26 Roxicodone - PO 10 mg Q6H PRN Administration PAIN LEVEL 4 - 6 Pneumococcal 13-Valent Conj Vacc 0.5 ml 01/16/18 01:15 Prevnar 13 Syringe - IM 01/16/18 01:16 .ONCE ONE Patient is a 63 year old male with PMHx of Penile cancer s/p excision presented to the ED with the complaints of pain the left side of the chest and blood in urine. ASSESSMENT Right lower pole mass Central left lower lobe pulmonary mass with extension to the infrahilar portion of the mediastinum Chest pain: Likely because he just had a IR guided biopsy. However, since he is complaining of central chest pain, pressure type, 9/10, would r/o ACS. Stat EKG and troponin ordered. Informed Dr. Hernandez. Leukocytosis Thrombocytosis FARRAH Hyponatremia PLAN Metastatic cancer CT abd/pelvis 01/15/18: Right lower pole mass. Central left lower lobe pulmonary mass with extension to the infrahilar portion of the mediastinum. Left anterior 7th rib lesion Suspicious for metastatic lesion. Given the Right lower pole mass in CT and hematuria, more likely it is Renal cell carcinoma. Patient has a h/o penile cancer for which it was surgical removed in 2015, had recurrence in 2017 s/p excision of the foreskin of the penis. No radiation or chemo after the surgery. Had an IR guided lung biospy. Discuss further treatment and plan with the patient after the biopsy results. DVT prophylaxis Leukocytosis WBC count 16--->20.5 today. Afebrile, urine cultures are negative Would consider ID eval for possible infectious cause in the left lung where cavitary lesions are seen. Thrombocytosis Etiology unknown at this time. Platelet count is 446. Will repeat Platelet count in the morning Monitor. Plan of care explained to the patient. He verbalized understanding. Case discussed with Dr. Guzman Visit type - Emergency Visit Emergency Visit: Yes ED Registration Date: 01/15/18 Care time: The patient presented to the Emergency Department on the above date and was hospitalized for further evaluation of their emergent condition. - New Patient This patient is new to me today: No - Critical Care Critical Care patient: No
--- NOTE | 2018-01-17 15:25 | EKG ---
Test Reason : Blood Pressure : / mmHG Vent. Rate : 094 BPM Atrial Rate : 094 BPM P-R Int : 138 ms QRS Dur : 078 ms QT Int : 316 ms P-R-T Axes : 077 074 075 degrees QTc Int : 395 ms NORMAL SINUS RHYTHM MINIMAL VOLTAGE CRITERIA FOR LVH, MAY BE NORMAL VARIANT BORDERLINE ECG NO PREVIOUS ECGS AVAILABLE Confirmed by BLAYNE MOHAMUD MD ([id number]) on 01/17/2018 3:25:30 PM Referred By: Milton ARROYO Confirmed By:BLAYNE MOHAMUD MD
--- NOTE | 2018-01-17 15:41 | PN ---
Progress Note, Physician - Current Medication List Current Medications: Active Medications Acetaminophen (Tylenol -) 650 mg PO Q6H PRN PRN Reason: FEVER >101*F Last Admin: 01/17/18 00:49 Dose: 650 mg Fentanyl (Duragesic 25mcg Patch -) 1 patch TD Q72H [facility]TT[facility] Stop: 01/22/18 17:27 Last Admin: 01/15/18 17:42 Dose: 1 patch Sodium Chloride (Normal Saline -) 1,000 mls @ 100 mls/hr IV ASDIR [facility] Influenza Virus Vaccine Quadrival (Flulaval Quad [id number]) 60 mcg IM ONCE [facility] Miscellaneous (Duragesic Patch Waste) 1 each TD PRN PRN PRN Reason: PAIN Oxycodone HCl (Roxicodone -) 10 mg PO Q6H PRN PRN Reason: PAIN LEVEL 4 - 6 Last Admin: 01/15/18 21:26 Dose: 10 mg Pneumococcal 13-Valent Conj Vacc (Prevnar 13 Syringe -) 0.5 ml IM .ONCE ONE Stop: 01/16/18 01:16 - Objective Vital Signs: Vital Signs Temperature 99.1 F 01/17/18 14:53 Pulse Rate 99 H 01/17/18 14:53 Respiratory Rate 18 01/17/18 14:53 Blood Pressure 126/59 01/17/18 14:53 O2 Sat by Pulse Oximetry (%) 100 01/17/18 10:51 Constitutional: Yes: No Distress HENT: Yes: Atraumatic Neck: Yes: Supple Cardiovascular: Yes: Regular Rate and Rhythm Respiratory: Yes: Rhonchi Gastrointestinal: Yes: Hematemesis Extremities: Yes: WNL Labs: CBC, BMP 01/16/18 06:00 01/17/18 12:50 INR, PTT INR 1.28 (0.83-1.09) H 01/16/18 06:00 Problem List - Problems (1) Failure to thrive Code(s): ZRS7645 - Qualifiers: Failure to thrive age range: in adult Qualified Code(s): R62.7 - Adult failure to thrive (2) Malignancy Code(s): C80.1 - MALIGNANT (PRIMARY) NEOPLASM, UNSPECIFIED (3) Pain Code(s): R52 - PAIN, UNSPECIFIED (4) Lung mass Assessment/Plan: reports reviewed pulmonary on board oncology consult for biopsy Code(s): R91.8 - OTHER NONSPECIFIC ABNORMAL FINDING OF LUNG FIELD (5) Renal mass, right Code(s): N28.89 - OTHER SPECIFIED DISORDERS OF KIDNEY AND URETER
[2018-01-17] MEDS ORDERED: PNEUMOC 13-VAL CONJ-DIP CRM/PF 0.5 ML DISP.SYRIN IM ONE (20:30)
[2018-01-17] MEDS ORDERED: FLU VACCINE QUAD 60 MCG/0.5 ML (MDV 18-19) IM ONE (20:30)
--- NOTE | 2018-01-17 22:34 | PN ---
Teaching Attending Note Name of Resident: Kendal Navarro ATTENDING PHYSICIAN STATEMENT I saw and evaluated the patient. I reviewed the resident's note and discussed the case with the resident. I agree with the resident's findings and plan as documented. 63 years old status post multiple rib fractures 2 weeks ago presents to the ED with progressively worsening posterior rib and now abdominal discomfort. also with significant wt. 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 HPV-/squamous cell cancer CT c/a/p --rt. renal lower pole mass. LLL mass extending to mediastinum and destructive lesion Lt. 7th rib s/p IR guided biopsy await path Delirium --pain meds? withdrawal per primary team FARRAH -- on IV fluids will follow
[2018-01-17] MEDS: oxyCODONE HCL 5 MG TABLET PO PRN (22:37)
[2018-01-17] MEDS: SODIUM CHLORIDE 1,000 ML IV SCH (22:40)
[2018-01-17 23:05] LABS: URINE CREATININE 89.8 mg/dL (2-36)
[2018-01-18] MEDS: ACETAMINOPHEN 325 MG TABLET (FP) PO PRN ×3 (01:13→22:04)
[2018-01-18 07:23] LABS: BASO % 0.8 % (0-2.0); EOS % 3.1 % (0-4.5); HEMATOCRIT 34.4 % (35.4-49); HEMOGLOBIN 11.5 GM/dL (11.7-16.9); MCH 30.1 pg (25.7-33.7); MCHC 33.3 g/dl (32.0-35.9); MEAN CELL VOLUME 90.4 fl (80-96); MEAN PLT VOLUME 7.7 fl (7.5-11.1); MONO % 12.9 % (3.8-10.2); NEUT % 70.2 % (42.8-82.8); PLATELET COUNT 408 K/MM3 (134-434); RDW 12.7 % (11.9-15.9); WHITE BLOOD COUNT 14.8 K/mm3 (4.0-10.0)
[2018-01-18 07:43] LABS: ALBUMIN 2.4 g/dl (3.4-5.0); ANION GAP 6 MMOL/L (8-16); BLOOD UREA NITROGEN 24 mg/dL (7-18); CALCIUM 9.3 mg/dL (8.5-10.1); CHLORIDE 103 mmol/L (98-107); CO2 27 mmol/L (21-32); GLUCOSE,RANDOM 89 mg/dL (74-106); POTASSIUM 4.4 mmol/L (3.5-5.1); SODIUM 136 mmol/L (136-145)
[2018-01-18 07:47] LABS: BILIRUBIN,TOTAL 0.4 mg/dL (0.2-1); CREATININE 1.4 mg/dL (0.55-1.3); SGOT/AST 13 U/L (15-37); SGPT/ALT 14 U/L (13-61); TOT PROT 6.4 g/dl (6.4-8.2)
[2018-01-18 07:54] LABS: ALK PHOS 68 U/L (45-117); MAGNESIUM 2.3 mg/dL (1.8-2.4); PHOSPHOROUS 3.6 mg/dL (2.5-4.9)
[2018-01-18] MEDS: SODIUM CHLORIDE 1,000 ML IV SCH ×4 (09:38→22:01)
--- NOTE | 2018-01-18 09:45 | PN ---
Progress Note, Physician History of Present Illness: patient post lung biopsy no complaints had low grade fever - Current Medication List Current Medications: Active Medications Acetaminophen (Tylenol -) 650 mg PO Q6H PRN PRN Reason: FEVER >101*F Last Admin: 01/18/18 01:13 Dose: 650 mg Fentanyl (Duragesic 25mcg Patch -) 1 patch TD Q72H [facility] Stop: 01/22/18 17:27 Last Admin: 01/15/18 17:42 Dose: 1 patch Sodium Chloride (Normal Saline -) 1,000 mls @ 100 mls/hr IV ASDIR [facility] Last Admin: 01/18/18 09:38 Dose: 100 mls/hr Miscellaneous (Duragesic Patch Waste) 1 each TD PRN PRN PRN Reason: PAIN Oxycodone HCl (Roxicodone -) 10 mg PO Q6H PRN PRN Reason: PAIN LEVEL 4 - 6 Last Admin: 01/17/18 22:37 Dose: 10 mg - Objective Vital Signs: Vital Signs Temperature 98.5 F 01/18/18 06:00 Pulse Rate 69 01/18/18 06:00 Respiratory Rate 20 01/18/18 06:00 Blood Pressure 108/60 01/18/18 06:00 O2 Sat by Pulse Oximetry (%) 98 01/17/18 21:00 Constitutional: Yes: No Distress, Calm, Other (failure to thrive) Cardiovascular: Yes: Regular Rate and Rhythm Respiratory: Yes: Regular, Poor Air Entry, Rhonchi Gastrointestinal: Yes: Normal Bowel Sounds, Soft Musculoskeletal: Yes: WNL Extremities: Yes: WNL Neurological: Yes: Alert Psychiatric: Yes: Alert Labs: CBC, BMP 01/18/18 06:30 01/18/18 06:30 INR, PTT INR 1.28 (0.83-1.09) H 01/16/18 06:00 Assessment/Plan Problem List - Problems (1) Lung mass Code(s): R91.8 - OTHER NONSPECIFIC ABNORMAL FINDING OF LUNG FIELD (2) Failure to thrive Code(s): [id number] - Qualifiers: Failure to thrive age range: in adult Qualified Code(s): R62.7 - Adult failure to thrive (3) Malignancy Code(s): C80.1 - MALIGNANT (PRIMARY) NEOPLASM, UNSPECIFIED (4) Pain Code(s): R52 - PAIN, UNSPECIFIED (5) Rib lesion Code(s): M89.9 - DISORDER OF BONE, UNSPECIFIED (6) Renal mass, right Code(s): N28.89 - OTHER SPECIFIED DISORDERS OF KIDNEY AND URETER (7) Tobacco abuse Code(s): Z72.0 - TOBACCO USE (8) Tobacco abuse counseling Code(s): Z71.6 - TOBACCO ABUSE COUNSELING patient had a fever could be post obstructive pna plan is for lung biopsy plan monitor for fevers rest continue current mgmt patient currently stable
--- NOTE | 2018-01-18 10:58 | PATH ---
Surgical Pathology Report Patient Name: GUILLERMO BALBUENA JR Med. Rec. #: [id number] /Age/Gender: 1955 (Age: 63) / M Account: [id number] Location: [facility] MED/SURG Taken: 01/17/2018 Received: 01/17/2018 Reported: 01/18/2018 Physicians: Curry Wilson M.D. Specimen(s) Received LEFT LATERAL RIB BX Clinical History 63-year-old male with history of penile squamous cell carcinoma now with lung, rib and renal masses Final Diagnosis LATERAL RIB, LEFT, BIOPSY: SQUAMOUS CELL CARCINOMA, WELL DIFFERENTIATED. Comment: Findings are compatible with known history of penile squamous cell carcinoma. Suggest clinical/radiologic correlation. Findings discussed with Dr. Vogel. Electronically Signed Madisyn Small M.D. Gross Description Received in formalin labeled "left lateral rib biopsy," is a 1.0 x 0.9 x 0.1 cm aggregate of joseph soft tissue and possible bone fragments. The formalin is filtered and entirely submitted in one cassette, following decalcification. /01/17/2018 saudi/01/17/2018
--- NOTE | 2018-01-18 12:15 | PN ---
Physical Exam: SUBJECTIVE: Patient seen and examined at bed side this morning. Complaining of pain in the LUQ, 5/10 intensity, non radiating not associated with Nausea or vomiting. Denies palpitation, sob, cough, headache, tingling or numbness. Wants to go home. Tmax 100.9. No acute overnight events. OBJECTIVE: Vital Signs Period Temp Pulse Resp BP Sys/Ventura Pulse Ox Last 24 Hr 97.6 F-100.9 F 65-99 18-20 106-126/55-66 98-98 GENERAL: Middle aged male, thinly built, sitting in bed, eating lunch, is awake , alert, and fully oriented, in no acute distress. HEAD: Normal with no signs of trauma. EYES: EOM intact, no pallor or icterus. ENT: Ears normal, moist mucous membranes. NECK: Supple. LUNGS: Dressing over the biopsy site. Decreased breath sounds. Crackles on the base of the Left > right. no wheeze HEART: Regular rate and rhythm, S1, S2 without murmur. CHEST: Scar florencia + ABDOMEN: Soft, nontender, no organomegaly GENITALIA: s/p excision of the foreskin EXTREMITIES: 2+ pulses, warm, well-perfused, no edema. NEUROLOGICAL: No facial droop. Normal speech, gait not observed. PSYCH: Normal mood, normal affect. SKIN: Warm, dry, normal turgor, no rashes or lesions noted Laboratory Results - last 24 hr 01/17/18 01/17/18 01/17/18 12:50 15:10 22:40 WBC RBC Hgb Hct MCV MCH MCHC RDW Plt Count MPV Absolute Neuts (auto) Neutrophils % Lymphocytes % Monocytes % Eosinophils % Basophils % Nucleated RBC % Sodium 135 L Potassium 4.8 Chloride 100 Carbon Dioxide 30 Anion Gap 5 L BUN 25 H Creatinine 1.7 H Creat Clearance w eGFR 41.18 Random Glucose 90 Calcium 9.8 Phosphorus Magnesium Total Bilirubin 0.3 AST 13 L ALT 14 Alkaline Phosphatase 70 Troponin I < 0.02 Total Protein 7.0 Albumin 2.7 L U Random Total Protein Ur Random Sodium 64 Ur Random Urea Nitrogn Urine Creatinine 01/17/18 01/18/18 01/18/18 22:40 06:30 06:30 WBC 14.8 H RBC 3.80 L Hgb 11.5 L Hct 34.4 L MCV 90.4 MCH 30.1 MCHC 33.3 RDW 12.7 Plt Count 408 MPV 7.7 Absolute Neuts (auto) 10.4 H Neutrophils % 70.2 Lymphocytes % 13.0 D Monocytes % 12.9 H Eosinophils % 3.1 D Basophils % 0.8 Nucleated RBC % 0 Sodium 136 Potassium 4.4 Chloride 103 Carbon Dioxide 27 Anion Gap 6 L BUN 24 H Creatinine 1.4 H Creat Clearance w eGFR 51.52 Random Glucose 89 Calcium 9.3 Phosphorus 3.6 Magnesium 2.3 Total Bilirubin 0.4 AST 13 L ALT 14 Alkaline Phosphatase 68 Troponin I Total Protein 6.4 Albumin 2.4 L U Random Total Protein 59 H Ur Random Sodium Ur Random Urea Nitrogn 744 Urine Creatinine 89.8 H 01/18/18 06:30 WBC RBC Hgb Hct MCV MCH MCHC RDW Plt Count MPV Absolute Neuts (auto) Neutrophils % Lymphocytes % Monocytes % Eosinophils % Basophils % Nucleated RBC % Sodium Cancelled Potassium Cancelled Chloride Cancelled Carbon Dioxide Cancelled Anion Gap Cancelled BUN Cancelled Creatinine Cancelled Creat Clearance w eGFR Cancelled Random Glucose Cancelled Calcium Cancelled Phosphorus Magnesium Total Bilirubin Cancelled AST Cancelled ALT Cancelled Alkaline Phosphatase Cancelled Troponin I Total Protein Cancelled Albumin Cancelled U Random Total Protein Ur Random Sodium Ur Random Urea Nitrogn Urine Creatinine Active Medications Generic Name Dose Route Start Last Admin Trade Name Freq PRN Reason Stop Dose Admin Acetaminophen 650 mg 01/16/18 01:41 01/18/18 01:13 Tylenol - PO 650 mg Q6H PRN Administration FEVER >101*F Fentanyl 1 patch 01/15/18 17:30 01/15/18 17:42 Duragesic 25mcg Patch - TD 01/22/18 17:27 1 patch Q72H COLLETTE Administration Sodium Chloride 1,000 mls @ 100 mls/hr 01/17/18 12:39 01/18/18 09:38 Normal Saline - IV 100 mls/hr ASDIR [facility] Administration Miscellaneous 1 each 01/18/18 17:27 Duragesic Patch Waste TD PRN PRN PAIN Oxycodone HCl 10 mg 01/15/18 17:26 01/17/18 22:37 Roxicodone - PO 10 mg Q6H PRN Administration PAIN LEVEL 4 - 6 Patient is a 63 year old male with PMHx of Penile cancer s/p excision presented to the ED with the complaints of pain the left side of the chest and blood in urine. ASSESSMENT Low grade fever: could be from malignancy vs infection Right lower pole mass Central left lower lobe pulmonary mass with extension to the infrahilar portion of the mediastinum Chest pain: Resolved. ACS ruled out. Leukocytosis Thrombocytosis FARRAH Hyponatremia PLAN Metastatic cancer CT abd/pelvis 01/15/18: Right lower pole mass. Central left lower lobe pulmonary mass with extension to the infrahilar portion of the mediastinum. Left anterior 7th rib lesion Suspicious for metastatic lesion. Given the Right lower pole mass in CT and hematuria, more likely it is Renal cell carcinoma. Patient has a h/o penile cancer for which it was surgical removed in 2016, had recurrence in 2017 s/p excision of the foreskin of the penis. No radiation or chemo after the surgery. Had an IR guided lung biospy on 01/17/2018. Discuss further treatment and plan with the patient after the biopsy results. DVT prophylaxis Leukocytosis -Improving. WBC count 16--->20.5--> 14.8 today. Afebrile, urine cultures are negative Would consider ID eval for possible infectious cause in the left lung where cavitary lesions are seen. Thrombocytosis Improved Maybe it was just reactive. Platelet count was 446-->408. Will repeat Platelet count in the morning Monitor. FARRAH Creatinine 1.4 today As per Renal. Plan of care explained to the patient. He verbalized understanding. Case discussed with Dr. Guzman. Visit type - Emergency Visit Emergency Visit: Yes ED Registration Date: 01/15/18 Care time: The patient presented to the Emergency Department on the above date and was hospitalized for further evaluation of their emergent condition. - New Patient This patient is new to me today: No - Critical Care Critical Care patient: No
--- NOTE | 2018-01-18 13:16 | PN ---
Progress Note, Physician History of Present Illness: s/p biopsy stable - Current Medication List Current Medications: Active Medications Acetaminophen (Tylenol -) 650 mg PO Q6H PRN PRN Reason: FEVER >101*F Last Admin: 01/18/18 01:13 Dose: 650 mg Fentanyl (Duragesic 25mcg Patch -) 1 patch TD Q72H [facility] Stop: 01/22/18 17:27 Last Admin: 01/15/18 17:42 Dose: 1 patch Sodium Chloride (Normal Saline -) 1,000 mls @ 100 mls/hr IV ASDIR [facility] Last Admin: 01/18/18 09:38 Dose: 100 mls/hr Miscellaneous (Duragesic Patch Waste) 1 each TD PRN PRN PRN Reason: PAIN Oxycodone HCl (Roxicodone -) 10 mg PO Q6H PRN PRN Reason: PAIN LEVEL 4 - 6 Last Admin: 01/17/18 22:37 Dose: 10 mg - Objective Vital Signs: Vital Signs Temperature 97.6 F 01/18/18 10:00 Pulse Rate 65 01/18/18 10:00 Respiratory Rate 20 01/18/18 10:00 Blood Pressure 107/55 01/18/18 10:00 O2 Sat by Pulse Oximetry (%) 98 01/18/18 09:00 Constitutional: Yes: No Distress HENT: Yes: Atraumatic Neck: Yes: Supple Respiratory: Yes: Rhonchi Gastrointestinal: Yes: Normal Bowel Sounds Extremities: Yes: WNL Neurological: Yes: Alert, Oriented Labs: CBC, BMP 01/18/18 06:30 01/18/18 06:30 INR, PTT INR 1.28 (0.83-1.09) H 01/16/18 06:00 Problem List - Problems (1) Failure to thrive Code(s): [id number] - Qualifiers: Failure to thrive age range: in adult Qualified Code(s): R62.7 - Adult failure to thrive (2) Malignancy Code(s): C80.1 - MALIGNANT (PRIMARY) NEOPLASM, UNSPECIFIED (3) Pain Code(s): R52 - PAIN, UNSPECIFIED (4) Lung mass Assessment/Plan: reports reviewed pulmonary on board oncology consult s/p biopsy Code(s): R91.8 - OTHER NONSPECIFIC ABNORMAL FINDING OF LUNG FIELD (5) Renal mass, right Code(s): N28.89 - OTHER SPECIFIED DISORDERS OF KIDNEY AND URETER (6) ARF (acute renal failure) Assessment/Plan: will hydrate Code(s): N17.9 - ACUTE KIDNEY FAILURE, UNSPECIFIED (7) Tobacco abuse Code(s): Z72.0 - TOBACCO USE
--- NOTE | 2018-01-18 14:00 | PN ---
Progress Note (short form) - Note Progress Note: PULMONARY Pathology back as squamous cell ca, informed pt. Vital Signs Period Temp Pulse Resp BP Sys/Ventura Pulse Ox Last 24 Hr 97.6 F-100.9 F 65-99 18-20 106-126/55-66 98-98 Gen: cachectic Heart: RRR Lung: decreased breath sounds at the bases Abd: soft, nontender Ext: no edema CBC, BMP 01/18/18 06:30 01/18/18 06:30 Active Medications Acetaminophen (Tylenol -) 650 mg PO Q6H PRN PRN Reason: FEVER >101*F Last Admin: 01/18/18 01:13 Dose: 650 mg Fentanyl (Duragesic 25mcg Patch -) 1 patch TD Q72H [facility] Stop: 01/22/18 17:27 Last Admin: 01/15/18 17:42 Dose: 1 patch Sodium Chloride (Normal Saline -) 1,000 mls @ 100 mls/hr IV ASDIR [facility] Last Admin: 01/18/18 09:38 Dose: 100 mls/hr Miscellaneous (Duragesic Patch Waste) 1 each TD PRN PRN PRN Reason: PAIN Oxycodone HCl (Roxicodone -) 10 mg PO Q6H PRN PRN Reason: PAIN LEVEL 4 - 6 Last Admin: 01/17/18 22:37 Dose: 10 mg A/P Metastatic Penile Ca to Lung, Kidney, Bone Acute Kidney Injury - oncology f/u - increase pain control - IVF - monitor urine output, creatinine - DVT prophylaxis
--- NOTE | 2018-01-18 14:32 | PN ---
Progress Note (short form) - Note Progress Note: Renal Consult for FARRAH Pt seen and examined at the bedside no acute complaints no sob, cp, abd pain, N/V/D making urine Vital Signs Temperature 98.2 F 01/18/18 13:51 Pulse Rate 80 01/18/18 13:51 Respiratory Rate 01/18/18 13:51 Blood Pressure 107/56 01/18/18 13:51 O2 Sat by Pulse Oximetry (%) 98 01/18/18 09:00 Intake & Output 01/15/18 01/16/18 01/17/18 01/18/18 23:59 23:59 23:59 23:59 Intake Total 120 1295 475 675 Output Total 300 Balance 120 1295 175 675 Weight 49.186 kg 48.988 kg NAD, cachetic RRR, No M/R Dec BS at lung bases soft NT/ND, no rebound or guarding no LE edema, clubbing or cyanosis CBC, BMP 01/18/18 06:30 01/18/18 06:30 Current Medications Acetaminophen (Tylenol -) 650 mg PO Q6H PRN PRN Reason: FEVER >101*F Last Admin: 01/18/18 01:13 Dose: 650 mg Fentanyl (Duragesic 25mcg Patch -) 1 patch TD Q72H [facility]LE[facility]E Stop: 01/22/18 17:27 Last Admin: 01/15/18 17:42 Dose: 1 patch Sodium Chloride (Normal Saline -) 1,000 mls @ 100 mls/hr IV ASDIR [facility] Last Admin: 01/18/18 09:38 Dose: 100 mls/hr Miscellaneous (Duragesic Patch Waste) 1 each TD PRN PRN PRN Reason: PAIN Oxycodone HCl (Roxicodone -) 15 mg PO Q6H PRN PRN Reason: PAIN LEVEL 4 - 6 63 year old gentleman with 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 #FARRAH likely multifactoiral insetting fo contrast exposure, NSIAD use and volume depletion #Hyponatremia (likely hypovolemic) #Lung and Renal Mass #Leukocytosis Renal function with mild improvement Would continue isotonic saline for additional 24 hours Urine studies consistent with ATN no indication for CORE STRIPPER Continue to trend renal function and electrolytes Jarad Tesfaye DO
[2018-01-18] MEDS: oxyCODONE HCL 5 MG TABLET PO PRN ×2 (16:08→22:03)
[2018-01-18] MEDS ORDERED: FENTANYL PATCH WASTE TD PRN (17:27)
--- NOTE | 2018-01-18 21:26 | PN ---
Teaching Attending Note Name of Resident: Kendal Navarro ATTENDING PHYSICIAN STATEMENT I saw and evaluated the patient. I reviewed the resident's note and discussed the case with the resident. I agree with the resident's findings and plan as documented. 63 years old status post multiple rib fractures 2 weeks ago presents to the ED with progressively worsening posterior rib and now abdominal discomfort. also with significant wt. loss h/o penile cancer in 2015 , recurrence in 2017. s/p excision. HPV-/squamous cell cancer CT c/a/p --rt. renal lower pole mass. LLL mass extending to mediastinum/ atelectasis and destructive lesion Lt. 7th rib s/p IR guided biopsy prelimnary path c/w squamous cell cancer Delirium --pain meds? withdrawal Resolved FARRAH -- on IV fluids improving Discussed with patient, his mother and niece in detail ---the diagnosis of metastatic squamous cell cancer Discussed need for close follow up outpatient, port-a-cath placement, initiation of chemotherpay will need bone scan/MRI brain to complete w/u will need close outpatient follow up, once discharged
[2018-01-19] MEDS: ACETAMINOPHEN 325 MG TABLET (FP) PO PRN ×2 (06:37→14:55)
[2018-01-19] MEDS: oxyCODONE HCL 5 MG TABLET PO PRN ×2 (06:38→14:56)
[2018-01-19 07:30] LABS: HEMOGLOBIN 11.8 GM/dL (11.7-16.9); MCH 29.8 pg (25.7-33.7); MCHC 32.7 g/dl (32.0-35.9); MEAN CELL VOLUME 91.2 fl (80-96); MEAN PLT VOLUME 7.8 fl (7.5-11.1); PLATELET COUNT 419 K/MM3 (134-434); RBC 3.95 M/mm3 (4.00-5.60); RDW 12.5 % (11.9-15.9)
--- NOTE | 2018-01-19 08:34 | PN ---
Progress Note, Physician History of Present Illness: patient post lung biopsy results noted no issues continues to c/o of pain in the back and left side had again a low grade temp - Current Medication List Current Medications: Active Medications Acetaminophen (Tylenol -) 650 mg PO Q6H PRN PRN Reason: FEVER >101*F Last Admin: 01/19/18 06:37 Dose: 650 mg Sodium Chloride (Normal Saline -) 1,000 mls @ 75 mls/hr IV ASDIR [facility] Last Admin: 01/18/18 22:01 Dose: 75 mls/hr Miscellaneous (Duragesic Patch Waste) 1 each TD PRN PRN PRN Reason: PAIN Oxycodone HCl (Roxicodone -) 15 mg PO Q6H PRN PRN Reason: PAIN LEVEL 4 - 6 Last Admin: 01/19/18 06:38 Dose: 15 mg - Objective Vital Signs: Vital Signs Temperature 99.8 F H 01/19/18 06:00 Pulse Rate 81 01/19/18 06:00 Respiratory Rate 20 01/19/18 06:00 Blood Pressure 129/62 01/19/18 06:00 O2 Sat by Pulse Oximetry (%) 96 01/18/18 20:18 Constitutional: Yes: No Distress, Calm, Other (failure to thrive) Cardiovascular: Yes: Regular Rate and Rhythm Respiratory: Yes: Regular, Poor Air Entry Gastrointestinal: Yes: Normal Bowel Sounds, Soft Musculoskeletal: Yes: Back Pain Extremities: Yes: WNL Neurological: Yes: Alert, Oriented Psychiatric: Yes: Alert, Oriented Labs: CBC, BMP 01/19/18 06:30 INR, PTT INR 1.28 (0.83-1.09) H 01/16/18 06:00 Assessment/Plan Problem List - Problems (1) Lung mass Code(s): R91.8 - OTHER NONSPECIFIC ABNORMAL FINDING OF LUNG FIELD (2) Failure to thrive Code(s): [id number] - Qualifiers: Failure to thrive age range: in adult Qualified Code(s): R62.7 - Adult failure to thrive (3) Malignancy Code(s): C80.1 - MALIGNANT (PRIMARY) NEOPLASM, UNSPECIFIED (4) Pain Code(s): R52 - PAIN, UNSPECIFIED (5) Rib lesion Code(s): M89.9 - DISORDER OF BONE, UNSPECIFIED (6) Renal mass, right Code(s): N28.89 - OTHER SPECIFIED DISORDERS OF KIDNEY AND URETER (7) Tobacco abuse Code(s): Z72.0 - TOBACCO USE (8) Tobacco abuse counseling Code(s): Z71.6 - TOBACCO ABUSE COUNSELING patient had a fever could be post obstructive pna plan is for lung biopsy plan monitor for fevers rest continue current mgmt patient currently stable i think patient should be made to do incentive barron wbc still on the higher side will order a xray chest
[2018-01-19 09:05] LABS: ALBUMIN 2.5 g/dl (3.4-5.0); ALK PHOS 67 U/L (45-117); ANION GAP 6 MMOL/L (8-16); BILIRUBIN,TOTAL 0.2 mg/dL (0.2-1); BLOOD UREA NITROGEN 17 mg/dL (7-18); CHLORIDE 104 mmol/L (98-107); CO2 29 mmol/L (21-32); CREATININE 1.1 mg/dL (0.55-1.3); GLUCOSE,RANDOM 95 mg/dL (74-106); POTASSIUM 4.7 mmol/L (3.5-5.1); SGOT/AST 14 U/L (15-37); SGPT/ALT 19 U/L (13-61); SODIUM 139 mmol/L (136-145); TOT PROT 6.5 g/dl (6.4-8.2)
--- NOTE | 2018-01-19 11:25 | PN ---
Progress Note (short form) - Note Progress Note: Renal Consult for FARRAH Pt seen and examined at the bedside no acute complaints making urine w/o difficulty no sob, cp, abd pain Vital Signs Temperature 98.6 F 01/19/18 09:00 Pulse Rate 67 01/19/18 09:00 Respiratory Rate 18 01/19/18 09:00 Blood Pressure 116/63 01/19/18 09:00 O2 Sat by Pulse Oximetry (%) 97 01/19/18 09:00 Intake & Output 01/16/18 01/17/18 01/18/18 01/19/18 23:59 23:59 23:59 23:59 Intake Total 3493 064 2014 1270 Output Total 300 Balance 7353 443 1770 1270 Weight 48.988 kg NAD, cachetic RRR, No M/R Dec BS at lung bases soft NT/ND, no rebound or guarding no LE edema, clubbing or cyanosis CBC, BMP 01/19/18 06:30 01/19/18 06:30 Current Medications Acetaminophen (Tylenol -) 650 mg PO Q6H PRN PRN Reason: FEVER >101*F Last Admin: 01/19/18 06:37 Dose: 650 mg Sodium Chloride (Normal Saline -) 1,000 mls @ 75 mls/hr IV ASDIR [facility] Last Admin: 01/18/18 22:01 Dose: 75 mls/hr Miscellaneous (Duragesic Patch Waste) 1 each TD PRN PRN PRN Reason: PAIN Oxycodone HCl (Roxicodone -) 15 mg PO Q6H PRN PRN Reason: PAIN LEVEL 4 - 6 Last Admin: 01/19/18 06:38 Dose: 15 mg 63 year old gentleman with 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 #FARRAH likely multifactoiral insetting fo contrast exposure, NSIAD use and volume depletion #Hyponatremia (likely hypovolemic) #Lung and Renal Mass #Leukocytosis Renal function now improved pt tolerating oral diet can d/c IVF advised continued avoidance of NSAIDs on discharge d/c planing as per onoclogy and primary no renal contraindication to discharge should have repeat BMP in 5-7 days as outpatient Jarad Tesfaye DO
--- NOTE | 2018-01-19 14:33 | PN ---
Progress Note, Physician History of Present Illness: pulmonary alert,no distress,-cp,-sob - Current Medication List Current Medications: Active Medications Acetaminophen (Tylenol -) 650 mg PO Q6H PRN PRN Reason: FEVER >101*F Last Admin: 01/19/18 06:37 Dose: 650 mg Sodium Chloride (Normal Saline -) 1,000 mls @ 75 mls/hr IV ASDIR COLLETTE Last Admin: 01/18/18 22:01 Dose: 75 mls/hr Miscellaneous (Duragesic Patch Waste) 1 each TD PRN PRN PRN Reason: PAIN Oxycodone HCl (Roxicodone -) 15 mg PO Q6H PRN PRN Reason: PAIN LEVEL 4 - 6 Last Admin: 01/19/18 06:38 Dose: 15 mg - Objective Vital Signs: Vital Signs Temperature 98.6 F 01/19/18 09:00 Pulse Rate 67 01/19/18 09:00 Respiratory Rate 18 01/19/18 09:00 Blood Pressure 116/63 01/19/18 09:00 O2 Sat by Pulse Oximetry (%) 97 01/19/18 09:00 Constitutional: Yes: Calm, Thin Eyes: Yes: WNL HENT: Yes: WNL Neck: Yes: WNL Cardiovascular: Yes: Regular Rate and Rhythm, S1, S2 Respiratory: Yes: Diminished Gastrointestinal: Yes: Normal Bowel Sounds, Soft Extremities: Yes: WNL Edema: No Labs: CBC, BMP 01/19/18 06:30 01/19/18 06:30 INR, PTT INR 1.28 (0.83-1.09) H 01/16/18 06:00 Problem List - Problems (1) Lung mass Code(s): R91.8 - OTHER NONSPECIFIC ABNORMAL FINDING OF LUNG FIELD (2) Failure to thrive Code(s): [id number] - Qualifiers: Failure to thrive age range: in adult Qualified Code(s): R62.7 - Adult failure to thrive (3) Malignancy Code(s): C80.1 - MALIGNANT (PRIMARY) NEOPLASM, UNSPECIFIED (4) Pain Code(s): R52 - PAIN, UNSPECIFIED (5) Rib lesion Code(s): M89.9 - DISORDER OF BONE, UNSPECIFIED (6) Renal mass, right Code(s): N28.89 - OTHER SPECIFIED DISORDERS OF KIDNEY AND URETER (7) Tobacco abuse Code(s): Z72.0 - TOBACCO USE (8) Tobacco abuse counseling Code(s): Z71.6 - TOBACCO ABUSE COUNSELING Assessment/Plan IMP ALONDRA CONSOLIDATION METASTATIC PENILE CA LUNG,BONE R RENAL MASS RIB FXS S/P FALL H/O PENILE CA TOBACCO ABUSE PLAN O2 ANALGESICS DVT PROPHYLAXIS INCENTIVE SPIROMETER MONITOR LYTES PER ONCOLOGY DR MONTANO Problem List - Problems (1) Lung mass Code(s): R91.8 - OTHER NONSPECIFIC ABNORMAL FINDING OF LUNG FIELD (2) Failure to thrive Code(s): [id number] - Qualifiers: Failure to thrive age range: in adult Qualified Code(s): R62.7 - Adult failure to thrive (3) Malignancy Code(s): C80.1 - MALIGNANT (PRIMARY) NEOPLASM, UNSPECIFIED (4) Pain Code(s): R52 - PAIN, UNSPECIFIED (5) Rib lesion Code(s): M89.9 - DISORDER OF BONE, UNSPECIFIED (6) Renal mass, right Code(s): N28.89 - OTHER SPECIFIED DISORDERS OF KIDNEY AND URETER (7) Tobacco abuse Code(s): Z72.0 - TOBACCO USE (8) Tobacco abuse counseling Code(s): Z71.6 - TOBACCO ABUSE COUNSELING
[2018-01-19] MEDS: SODIUM CHLORIDE 1,000 ML IV SCH (14:54)
--- NOTE | 2018-01-19 15:42 | DS ---
Physical Examination Vital Signs: Vital Signs Temperature 98.6 F 01/19/18 09:00 Pulse Rate 67 01/19/18 09:00 Respiratory Rate 18 01/19/18 09:00 Blood Pressure 116/63 01/19/18 09:00 O2 Sat by Pulse Oximetry (%) 97 01/19/18 09:00 Constitutional: Yes: No Distress HENT: Yes: Atraumatic Neck: Yes: Supple Cardiovascular: Yes: Regular Rate and Rhythm Respiratory: Yes: CTA Bilaterally Gastrointestinal: Yes: Normal Bowel Sounds Extremities: Yes: WNL Neurological: Yes: Alert, Oriented Labs: CBC, BMP 01/19/18 06:30 01/19/18 06:30 Discharge Summary Reason For Visit: PAIN, FAILURE TO THRIVE, MALIGNANT NEOPLASM Current Active Problems Failure to thrive (Acute) Lung mass (Acute) Malignancy (Acute) Pain (Acute) Renal mass, right (Acute) Rib lesion (Acute) Tobacco abuse (Acute) Tobacco abuse counseling (Acute) Condition: Guarded - Instructions - Home Medications Comprehensive Discharge Medication List: Ambulatory Orders Bupropion HCl [Wellbutrin Xl -] 150 mg PO DAILY 03/30/15 Clonazepam [Klonopin] 2 mg PO BID 03/30/15 Risperidone [Risperdal] 2 mg PO HS 03/30/15 Trazodone HCl 100 mg PO HS 03/30/15 Oxycodone HCl/Acetaminophen [Percocet 5-325 mg Tablet] 1 tab PO Q4H PRN #20 tablet 04/14/15 Bacitracin - [Bacitracin Topical Ointment -] 1 applic TP TID #1 tube 04/14/17 Ibuprofen 600 mg PO TID #30 tablet 04/14/17 Tramadol HCl 50 mg PO QID #20 tablet MDD 4 04/14/17 dc home fu oncology /pulmonary as out pt
[2018-01-19 17:06] VITALS: BP 111/59; PULSE 66; TEMP 98.7
--- NOTE | 2018-01-19 17:49 | CON.GU ---
Consult Consult Specialty:: Referred by:: medicine Reason for Consultation:: metastatic penile cancer and renal mass - History of Present Illness Chief Complaint: metastatic penile cancer and renal mass History of Present Illness: 63 year old male with a history of penile cancer. He was initially excised in 2014. He returned two years later with a local recurrence but with negative pelvic imaging and no palpable inguinal THANG. He had another excision with negative margins and was non invasive. He comes to the hospital with pain and change of MS. CT scan reveals a renal mass and metastatic disease. - History Source History Provided By: Patient - Past Medical History Heme/Onc: Yes: Other (non invasive SCC of the penis 2014, 2016) - Alcohol/Substance Use Hx Alcohol Use: No - Smoking History Smoking history: Current every day smoker Have you smoked in the past 12 months: Yes Aproximately how many cigarettes per day: 60 Home Medications - Allergies Allergies/Adverse Reactions: Allergies Allergy/AdvReac Type Severity Reaction Status Date / Time No Known Drug Allergies Allergy Verified 01/15/18 10:11 - Home Medications Home Medications: Ambulatory Orders Bupropion HCl [Wellbutrin Xl -] 150 mg PO DAILY 03/30/15 Clonazepam [Klonopin] 2 mg PO BID 03/30/15 Risperidone [Risperdal] 2 mg PO HS 03/30/15 Trazodone HCl 100 mg PO HS 03/30/15 Oxycodone HCl/Acetaminophen [Percocet 5-325 mg Tablet] 1 tab PO Q4H PRN #20 tablet 04/14/15 Bacitracin - [Bacitracin Topical Ointment -] 1 applic TP TID #1 tube 04/14/17 Ibuprofen 600 mg PO TID #30 tablet 04/14/17 Tramadol HCl 50 mg PO QID #20 tablet MDD 4 04/14/17 Physical Exam- Vital Signs: Vital Signs Temperature 98.7 F 01/19/18 17:03 Pulse Rate 66 01/19/18 17:03 Respiratory Rate 18 01/19/18 17:03 Blood Pressure 111/59 L 01/19/18 17:03 O2 Sat by Pulse Oximetry (%) 97 01/19/18 09:00 Labs: CBC, BMP 01/19/18 06:30 01/19/18 06:30 Problem List - Problems (1) Renal mass, right Assessment/Plan: 4.4 cm mass of kidney. this may be a second primary but more likely a metastatic focus. chemotherapy as per Oncology. Consider biopsy of renal mass separately. 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 Code(s): M89.9 - DISORDER OF BONE, UNSPECIFIED
== END 2018-01-19 17:46 | disposition home or self-care (01) | DRG 343 ==
LOC: JER 09:52 → JERBED 15:34 → J7W 17:45
PROVIDERS: ADMIT Internal Medicine; ATTEND Internal Medicine
PROC: 0FB23ZX Excision of Left Lobe Liver, Percutaneous Approach, Diagnostic (ICD-10-PCS; principal; 2018-01-17)
PROC: 0PB13ZX Excision of 1 to 2 Ribs, Percutaneous Approach, Diagnostic (ICD-10-PCS; 2018-01-17)
DX: C79.51 Secondary malignant neoplasm of bone (principal); E43 Unspecified severe protein-calorie malnutrition; N17.9 Acute kidney failure, unspecified; R64 Cachexia; J98.11 Atelectasis; C79.01 Secondary malignant neoplasm of right kidney and renal pelvis; C78.02 Secondary malignant neoplasm of left lung; E87.1 Hypo-osmolality and hyponatremia; R62.7 Adult failure to thrive; S22.42XA Multiple fractures of ribs, left side, initial encounter for closed fracture; E86.1 Hypovolemia; Z85.49 Personal history of malignant neoplasm of other male genital organs; F17.210 Nicotine dependence, cigarettes, uncomplicated; Z68.1 Body mass index [BMI] 19.9 or less, adult; W11.XXXA Fall on and from ladder, initial encounter; Y93.89 Activity, other specified; Y92.89 Other specified places as the place of occurrence of the external cause; Y99.8 Other external cause status; R11.2 Nausea with vomiting, unspecified; D47.3 Essential (hemorrhagic) thrombocythemia; D72.829 Elevated white blood cell count, unspecified; F19.921 Other psychoactive substance use, unspecified with intoxication with delirium
CPT/HCPCS: 32405; 36415; 71046-TC-FY; 71260-TC; 74177-TC; 77012-TC; 78306-TC; 80048; 80053; 81003; 81015; 82570; 83735; 84100; 84156; 84300; 84484; 84540; 85025; 85027; 85610; 85730; 87086; 88305-TC; 88311-TC; 90670; 90688; 93005; 93010; 97116-GP; 97161-GP; 99284-25; A9503; G0008; G0009; J0131; J1644; J7030

== ENCOUNTER 2018-05-27 19:52 | Emergency (ER) | payer OTHER ==
[2018-05-27 20:07] VITALS: TEMP 97.7; BMI 27.3
[2018-05-27] MEDS ORDERED: FENTANYL PATCH WASTE MC PRN (20:23)
[2018-05-27] MEDS ORDERED: fentaNYL 50mcg/hr PATCH.TD72 TD ONE (20:24)
[2018-05-27] MEDS ORDERED: morphine CARPU-JECT 2 MG/1 ML DISP.SYRIN IM ONE (20:24)
--- NOTE | 2018-05-27 20:29 | PDOC ---
Attending Attestation - Resident Resident Name: MaryjaneAngeline - ED Attending Attestation I have performed the following: I have examined & evaluated the patient, The case was reviewed & discussed with the resident, I agree w/resident's findings & plan - HPI HPI: 05/27/18 20:49 The patient is a 63 year old male, with a significant past medical history of chronic pain (on Percocet and Fentanyl patches) penile cancer, lung cancer ( with mets to the lungs, kidney, and bones), who presents to the emergency department with, left upper rib pain. Patient notes he has not used his Fentanyl patch in approximately a week because he ran out and only recently refilled his prescription. Allergies: NKA Primary Care Physician: Dr. Carty <Brenda Abernathy - Last Filed: 05/27/18 20:49> - Physicial Exam PE: 05/27/18 20:55 cachetic 63 yo male with metastatic lesions from penile cancer and stage 4 lung cancer presents with ribcage and back pain. He finished radiation tx and starts chemotherapy this Monday05/27/18 20:59 head ncat neck supple cvs [id number] lungs no wheezing musculoskeletal : there is a 6 cm mass on his left forearm and a large mass on his midback in area of lumbar spine abd flat skin warm and dry neuro axox3 - Medical Decision Making 05/27/18 21:02 pt states he only wants pain medication and does not want an IV medications -he is supposed to be taking a fentanyl patch but ran out He denies any fever or chills or chest pain or difficulty breathing 05/27/18 21:41 pt received his pain medications and was discharged home to follow up with his oncologist <Joselin Wallace - Last Filed: 05/27/18 21:42> Attestations - Attestations 05/27/18 20:49 Documentation prepared by Brenda Abernathy, acting as medical office scheduler for Joselin Wallace MD. <Brenda Abernathy - Last Filed: 05/27/18 20:49>
[2018-05-27] MEDS ORDERED: MORPHINE SULFATE 2 MG/ML VIAL ONE (20:31)
--- NOTE | 2018-05-27 20:31 | PDOC ---
History of Present Illness - General Chief Complaint: Chronic pain Stated Complaint: PAIN Time Seen by Provider: 05/27/18 19:56 History Source: Patient Exam Limitations: No Limitations - History of Present Illness Initial Comments: 05/27/18 20:35 Pt is a 63yo M with PMH of penile cancer s/p surgery?, Stage 4 lung ca with mets to bone and kidney presenting to ED with complaints of L sided back pain. Pt states he has had the pain for the past 2 days, intermittent worse with movements. He denies fevers, chills, chest pain, SOB, cough, palpitations, syncope, lightheadedness, abdominal pain, n/v/d, dysuria, hematuria, headache. He has an appointment with his oncologist at [facility] in 2 days in which he will start chemotherapy. Pt states he just wants something for the pain and wants to go home. He takes Percocet 10 at home QID and Fentanyl 50mcg patch but he ran out of the Rx and has the new prescription but has not gotten it filled yet. PMD: Machelle Onc: Kaylen? PMH: see hpi PSH: none Meds: see med rec Allergies: nkda Social: smoked 3ppd, quit 6 months ago Past History - Past Medical History Allergies/Adverse Reactions: Allergies Allergy/AdvReac Type Severity Reaction Status Date / Time No Known Drug Allergies Allergy Verified 05/27/18 20:06 Home Medications: Ambulatory Orders Bupropion HCl [Wellbutrin Xl -] 150 mg PO DAILY 03/30/15 Clonazepam [Klonopin] 2 mg PO BID 03/30/15 Risperidone [Risperdal] 2 mg PO HS 03/30/15 Trazodone HCl 100 mg PO HS 03/30/15 Oxycodone HCl/Acetaminophen [Percocet 5-325 mg Tablet] 1 tab PO Q4H PRN #20 tablet 04/14/15 Bacitracin - [Bacitracin Topical Ointment -] 1 applic TP TID #1 tube 04/14/17 Ibuprofen 600 mg PO TID #30 tablet 04/14/17 Tramadol HCl 50 mg PO QID #20 tablet MDD 4 04/14/17 Anemia: No Asthma: No Cancer: Yes (PENILE) Cardiac Disorders: No CVA: No COPD: No CHF: No Dementia: No Diabetes: No GI Disorders: No Disorders: No HTN: No Hypercholesterolemia: No Liver Disease: No Seizures: No Thyroid Disease: No - Surgical History Abdominal Surgery: No Appendectomy: No Cardiac Surgery: No Cholecystectomy: No Lung Surgery: No Neurologic Surgery: No Orthopedic Surgery: No - Suicide/Smoking/Psychosocial Hx Smoking History: Former smoker Have you smoked in the past 12 months: No Number of Cigarettes Smoked Daily: 60 Cigars Per Day: 0 Information on smoking cessation initiated: No 'Breaking Loose' booklet given: 01/15/18 Hx Alcohol Use: No Drug/Substance Use Hx: No Substance Use Type: None Hx Substance Use Treatment: No Review of Systems - Review of Systems Constitutional: No: Chills, Fever, Night Sweats HEENTM: No: Symptoms Reported Respiratory: No: Symptoms reported Cardiac (ROS): No: Symptoms Reported ABD/GI: No: Symptoms Reported : No: Symptoms Reported Musculoskeletal: Yes: See HPI, Back Pain Integumentary: No: Symptoms Reported Neurological: No: Symptoms reported *Physical Exam - Vital Signs Last Vital Signs Temp Pulse Resp BP Pulse Ox 97.7 F 104 H 19 129/74 98 05/27/18 19:52 05/27/18 19:52 05/27/18 19:52 05/27/18 19:52 05/27/18 19:52 - Physical Exam General Appearance: Yes: Mild Distress, Cachetic HEENT: positive: EOMI, SUGEY, TMs Normal, Pharynx Normal. negative: Pale Conjunctivae, Scleral Icterus (R), Scleral Icterus (L) Neck: positive: Trachea midline, Supple. negative: Carotid bruit, Lymphadenopathy (R), Lymphadenopathy (L) Respiratory/Chest: positive: Lungs Clear, Normal Breath Sounds. negative: Crackles, Rales, Rhonchi, Stridor, Wheezing Cardiovascular: positive: Regular Rhythm, S1, S2, Tachycardia. negative: Edema , JVD, Murmur Vascular Pulses: Carotid (R): 2+, Carotid (L): 2+, Dorsalis-Pedis (R): 2+, Doralis-Pedis (L): 2+ Gastrointestinal/Abdominal: positive: Normal Bowel Sounds, Soft. negative: Distended, Guarding, Rebound, Tenderness, Hernia, Mass Musculoskeletal: negative: CVA Tenderness (R), CVA Tenderness (L), Muscle Spasm , Vertebral Tenderness Extremity: positive: Normal Capillary Refill, Pelvis Stable. negative: Swelling , Calf Tenderness Integumentary: positive: Normal Color, Dry, Warm Neurologic: positive: pumpman II-XII NML intact, Fully Oriented, Alert, Normal Mood/ Affect, Normal Response, Motor Strength 5/5 Moderate Sedation - Procedure Monitoring Vital Signs: Procedure Monitoring Vital Signs Temperature 97.7 F 05/27/18 19:52 Pulse Rate 104 H 05/27/18 19:52 Respiratory Rate 05/27/18 19:52 Blood Pressure 129/74 05/27/18 19:52 O2 Sat by Pulse Oximetry (%) 98 05/27/18 19:52 Medical Decision Making - Medical Decision Making 05/27/18 20:45 Pt is a 63yo M with PMH of penile cancer s/p surgery?, Stage 4 lung ca with mets to bone and kidney presenting to ED with complaints of L sided back pain. Pt states he has had the pain for the past 2 days, intermittent worse with movements. He denies fevers, chills, chest pain, SOB, cough, hemoptysis, palpitations, syncope, lightheadedness, abdominal pain, n/v/d, dysuria, hematuria, headache. He has an appointment with his oncologist at [facility] in 2 days in which he will start chemotherapy. Pt states he just wants something for the pain and wants to go home. He takes Percocet 10 at home QID and Fentanyl 50mcg patch but he ran out of the Rx and has the new prescription but has not gotten it filled yet. Vitals: tachycardia PE: cachetic with mass on back and L arm. Pt just wants pain management. Has stage 4 cancer, is seeing oncologist in 2 days, starting chemotherapy. No fevers or chills or symptoms of acute infection. Is afebrile today. Pt is alert and capable of making medical decisions. Has adequate pain management at home but has not been taking Fentanyl patch recently. Does not need labs or further imaging. Will give Fentanyl patch and 2mg IM morphine. Pt refusing IV fluids. Per nurse, Pt does not want to wait for pharmacy to fill Fentanyl patch (has Rx at home, will get it filled tomorrow). Will reassess. Pt feels better, requests to go home. Will DC. *DC/Admit/Observation/Transfer Diagnosis at time of Disposition: Pain - Discharge Dispostion Disposition: HOME Condition at time of disposition: Improved - Referrals Referrals: Scarlett Carty MD [Primary Care Provider] - - Patient Instructions Printed Discharge Instructions: DI for Cancer Pain Syndromes Additional Instructions: You were seen here today for pain. It most likely is due to the cancer. You have a prescription for Fentanyl patch. Please get it filled so that your pain is better controlled. Use as directed. Please keep your appointment with your doctor on Monday. Come back to the emergency room if you develop fever, are weak, start vomiting, have chest pain, have difficulty breathing or if any new concerning symptom develops. Thank you - Post Discharge Activity
[2018-05-27 21:37] VITALS: BP 106/72; PULSE 102
== END 2018-05-27 21:42 | disposition home or self-care (01) ==
LOC: JER 19:52
PROC: 3E023NZ Introduction of Analgesics, Hypnotics, Sedatives into Muscle, Percutaneous Approach (ICD-10-PCS; principal; 2018-05-27)
DX: G89.3 Neoplasm related pain (acute) (chronic) (principal); Z85.118 Personal history of other malignant neoplasm of bronchus and lung; Z85.830 Personal history of malignant neoplasm of bone; Z85.49 Personal history of malignant neoplasm of other male genital organs; Z87.891 Personal history of nicotine dependence
CPT/HCPCS: 96372; 99281-25